=== PATIENT | female | born 1985 | race Caucasian/White ===

== ENCOUNTER 2025-01-22 09:38 | Outpatient (CLI) | payer OTHER, SELFPAY ==
--- OUTSIDE RECORDS SUMMARY | 2025-01-22 10:47 | XMS_ITS | Clinical Summary ---
Author Organization [facility] Address [address] [place] [address] Care Team Providers Care Rn Surgical Name Role Phone Roman Sebastian MD Primary Care Provider Source Comments [facility],non-owned Affiliates and Associated Physician Practices is amultiple site organization consisting of ambulatory clinics and hospital sitesin [place], [place], [place] and [place]. This disclosure is being madepursuant to the Care Everywhere program and may not contain all information available regarding this patient. Last updated 18.[facility] Encounters Date Type Department Care Team Description 11/28/2024 9:15 AM BILINGUAL INTERPRETER - 11/28/2024 11:59 PM BILINGUAL INTERPRETER Hospital Encounter [facility] [address] [place] [address] Roman Sebastian MD Discharge Disposition: Home or Self Care from Last 3 Months Family History Medical History Relation Name Comments Cancer - Breast Maternal Grandmother Relation Name Status Comments Maternal Grandmother Social History Tobacco Use Types Packs/Day Years Used Date Smoking Tobacco: Never Assessed Comments No Sex and Gender Information Value Date Recorded Sex Assigned at Not on file Legal Sex Female 10:05 AM BILINGUAL INTERPRETER Gender Identity Not on file Sexual Orientation Not on file Last Filed Vital Signs Vital Sign Reading Time Taken Comments Blood Pressure - - Pulse - - Temperature - - Respiratory Rate - - Oxygen Saturation - - Inhaled Oxygen Concentration - - Weight - - Height 154.9 cm (5' 1 ) 11/28/2024 9:35 AM BILINGUAL INTERPRETER Body Mass Index - - Plan of Treatment Health Maintenance Due Date Last Done Comments LIPID TESTING 1983 PAP SMEAR 1983 HIV SCREENING 12/12/1998 HEPATITIS C SCREENING 12/08/2001 DTAP/TDAP/TD VACCINES (1 - Tdap) 12/12/2002 HEPATITIS B VACCINE (1 of 3 - 19+ 3-dose series) 12/12/2002 COVID-19 VACCINE (2 - 2023-2 5 season) 2024 10/22/2021 DEPRESSION SCREENING 10/03/2024 INFLUENZA VACCINE (Season Ended) 2025 MAMMOGRAM 11/28/2026 11/28/2024 ZOSTER VACCINE (1 of 2) 12/12/2033 HIB VACCINE Aged Out No longer eligi ble based on patient's age to complete this topic HPV VACCINE Aged Out No longer eligi ble based on patient's age to complete this topic MENINGOCOCCAL (Group B) VACC INE SHARED DECISION-MAKING Aged Out No longer eligibl e based on patient's age to complete this topic MENINGOCOCCAL GROUPS A/C/Y/W VACCINE Aged Out No longer eligible b ased on patient's age to complete this topic PNEUMOCOCCAL VACCINE Aged Out No long er eligible based on patient's age to complete this topic Procedures Procedure Name Priority Date/Time Associated Diagnosis Comments MAMMO BILAT SCREENING W MILO Routine 11/28/2024 9:33 AM BILINGUAL INTERPRETER Visit for screening mammogram from Last 3 Months Results * Mammo Bilat Screening W Milo (11/28/2024 9:33 AM BILINGUAL INTERPRETER) Anatomical Region Laterality Modality Breast Bilateral Mammography 11/28/2024 10:0 8 AM BILINGUAL INTERPRETER Impressions 11/28/2024 10:54 AM BILINGUAL INTERPRETER IMPRESSION: No mammographic evidence of malignancy. RECOMMENDATION: Screening mammography in one year, pending no interval breast concerns. Patient will receive the examination results by lay letter. OVERALL ASSESSMENT: BI-RADS CATEGORY 1: NEGATIVE. Report dictated by Paul Umaña MD I, Jessica Babin MD, FACR have personally reviewed and interpreted this examination/study. > Interpreting Provider: Jessica Bbain MD, FACR on 11/28/2024 10:54 AM Narrative 11/28/2024 10:54 AM BILINGUAL INTERPRETER EXAMINATIONS: BILATERAL DIGITAL SCREENING MAMMOGRAM AND BILATERAL BREAST TOMOSYNTHESIS LOCATION: [facility] EXAM DATE: 11/28/2024 HISTORY: Screening. Family history of breast cancer in a maternal grandmother at age 55. RISK ASSESSMENT CALCULATION: Patient completed a breast cancer risk assessment during her appointment 11/28/2024. Based upon the information she provided and her mammographic breast density, her lifetime risk of developing breast cancer is 14 % (Average Risk <15%; Intermediate / Moderate Risk 15-19; High Risk > 20%). Risk assessment based upon the BRCAPRO model. COMPARISON: None. This is a baseline exam. TECHNIQUE: Tomosynthesis (3D) and reconstructed synthetic 2-D images acquired and reviewed in the bilateral craniocaudal and mediolateral oblique projections. A total of 5 images obtained. Transpara AI was utilized in the interpretation. BREAST PARENCHYMAL COMPOSITION: Category A: The breasts are almost entirely fatty. FINDINGS: There are no suspicious findings or evidence of malignancy on mammography. us Provider Unknown MAMMO ORDERABLES Final Result from Last 3 Months Insurance CARE Care Teams Rn Surgical Relationship Specialty [place] [address] [place] [address] PCP - General Internal Medicine 11/28/24
--- OUTSIDE RECORDS SUMMARY | 2025-01-22 10:47 | XMS_ITS | Clinical Summary ---
Author Organization [facility] Address [address] [place] [address] Care Team Providers Care Sr. Director Name Role Phone Unavailable Primary Care Provider Unavailabl e Immunizations Immunization Administration Dates Next Due Covid-19, Mrna, Lnp-s, Pf, 30 Mcg/0.3 Ml Dose (P fizer) 10/22/2021 Social History Tobacco Use Types Packs/Day Years Used Date Smoking Tobacco: Never Assessed Comments Unknown Sex and Gender Information Value Date Recorded Sex Assigned at Not on file Legal Sex Female 12:53 PM CDT Gender Identity Not on file Sexual Orientation Not on file Plan of Treatment Health Maintenance Due Date Last Done Comments Hepatitis C Virus (HCV) Screening 1983 TdaP Immunization 1983 Hepatitis B Immunization (1 of 3 - 19+ 3-dose series) 12/12/2002 Pap Smear 12/12/2004 Cervical Cancer Screening (CCS) 12/12/2013 HPV/Cotest 12/12/2013 Discussion re Starting/Frequency of Mammograms 2023 Influenza Immunization (#1) 2024 SARS-COV-2 Immunization ( season) 2024 10/22/2021, 02/15/2021, 01/25/2021 Respiratory Syncytial Virus (RSV) Immunization (Adult) (1 - 1-dose 75+ series) 12/12/2058 Meningococcal Immunization (ACWY) Aged Out No longer eligible b ased on patient's age to complete this topic Pneumococcal Immunization Combined Aged Out No longer eligible b ased on patient's age to complete this topic Rotavirus Immunization Aged Out No lo nger eligible based on patient's age to complete this topic
[2025-02-05 15:32] VITALS: BMI 41.0
--- NOTE | 2025-02-05 15:32 | P.SLEEP_ITS ---
Sleep Study - Home Unattended Date of Study: 01/22/25 Ordering Provider: Roman Sebastian, Interpreting Provider: Alexandra Phipps, DO Home Sleep Study Type: Watch PAT Height: 1.55 m Weight: 98.43 kg Body Mass Index: 41.0 Neck Circumference (inches): 15 [place]: 5 Reason for Sleep Study snoring, daytime hypersomnia Sleep History The patient is a 39-year-old female that had a sleep study ordered her primary care for evaluation sleep apnea. The patient admits to excessive daytime sleepiness, loud snoring, trouble falling asleep and trouble maintaining sleep. The patient does have interruptions in breathing during sleep. She does choke or gasp at night. She denies having trouble breathing on her back. She does have morning headaches. She does have a dry or sore mouth/ throat in the morning. She denies nocturnal heartburn. She does urinate twice throughout the night. She does have difficulty falling and staying asleep. She does have difficulty returning to sleep if she wakes up throughout the night. She denies any hypnotic or sedative use. She denies feeling anxious about sleep. She does feel tired or sleepy during the day. She does feel tired in the morning. She denies having the urge to fall asleep during the day. She denies feeling drowsy while driving. He denies sleep paralysis, cataplexy and hypnagogic/ hypnopompic hallucinations. She does clench or grind her teeth. She denies kicking or jerking her legs excessively. She denies having a restless feeling in her legs. She goes to bed at 10:00 p.m. on work days and at 11:00 p.m. on her days off. It takes her 1 hour to fall asleep. She gets 6 hours of sleep on work days and 7 hours on her days off. Her sleep is a little more restorative on her days off. She denies taking any planned naps. She denies dream behavior. She denies sleep walking. She consumes 1-2 cups of caffeinated beverage per day. She denies tobacco use. She consumes more than 3 alcoholic beverages 1-2 nights per week. She denies e xercising regular basis. [facility] Family History Family History Mother Patient's mother is in good health, Onset Age: 49 Carcinoma of colon, Onset Age: 28 Grandparent Family history of malignant neoplasm of cervix, Onset Age: 70 Family history of malignant neoplasm of breast, Onset Age: 68 Family history of lymphoma, Onset Age: 65 Social History Social History Smoking status: Never smoker Alcohol intake: current Sleep Procedure The sleep study was completed using larkT a technically adequate device with seven channels: peripheral arterial tone, actigraphy, body position, snore, respiratory movement, pulse oximetry, sleep staging, and heart rate. Prior to using the device, the patient received verbal and written instructions for its application and was provided with the help desk phone number for additional telephonic instruction with 24-hour availability of qualified personnel to answer questions. The study was scored using AASM guidelines. Sleep Architecture The total recording time is 7 hrs, 45 min. The total sleep time is 6 hrs, 57 min. Sleep latency is 26 minutes. REM latency is 56 minutes. The patient had 5 episodes of waking. Sleep architecture shows 23.6% deep sleep, 48.9% light sleep, and (as % Total Sleep Time) showed NREM (Light 48.9%; Deep 23.6%), and a 27.5% stage REM. The patient spent 4.7% of total sleep time in the supine position. Sleep efficiency was 89.68. Respiratory Analysis The overall AHI (pAHI 4%:) is 2.5. The overall AHI (pAHI 3%:) is 13.8. The central AHI is 1.2. The AHI was 7.8 in NREM and 28.9 in REM sleep. The AHI was 12.4 in Supine and 13.8 in Non-supine sleep. Percent of Rodríguez Doty respirations is 0.0. Oximetry Data The oxygen desaturation index (MARSHALL 4%:) is 3.3. The mean saturation is 95%, and the lowest saturation is 89%. Time spent with saturation < 88% is 0.0 minutes. Snoring Profile Snoring average intensity is 42 dB. The patient snored above 45 decibels for 83.6 minutes, 20.0% of sleep time. Cardiac Profile The average pulse rate is 70 beats per minutes. The lowest pulse rate is 57 bpm. The highest pulse rate reported is 106 bpm. Atrial fibrillation was not detected. Premature beats occur <0.1 per minute. Assessment and Plan Assessment and Plan (1) JANESSA (obstructive sleep apnea): Code(s): G47.33 - Obstructive sleep apnea (adult) (pediatric) Status: Acute Assessment and Plan: Per AASM guidelines, the patient had an overall AHI of 13.8 with desaturation down to 89% which is consistent with mild sleep apnea. Due to the patient's insomnia, she qualifies for treatment. I recommend that the patient be prescribed Resmed AirSense 11 AutoPAP 5-15 cm H2O, CPAP mask/filters/tubing and heated humidity. A mandibular advancement device is also an acceptable treatment option. This should be used with all episodes of sleep.? Compliance should be reviewed within 31-90 days of starting therapy for usage greater than 4 hours per night greater than 70% of the nights. The patient should be asked about symptoms such as?excessive daytime sleepiness, quality of sleep, decreased nocturia, increased?mental functioning such as memory, mood, and concentration. If the patient's insurance only recognizes CMS guidelines for sleep study scoring, the patient would not qualify for treatment based on these results. I would recommend that she have an in-lab split study if her insurance will not recognize AAS guidelines. Data The data obtained during this sleep study is adequate for interpretation. Certification This sleep study has been reviewed by a board certified sleep medicine physician.
== END 2025-01-23 09:15 | disposition home or self-care (01) ==
PROVIDERS: PCP Internal Medicine; Visit Provider Internal Medicine
DX: G47.33 Obstructive sleep apnea (adult) (pediatric) (principal)
CPT/HCPCS: 95800

== ENCOUNTER 2025-04-11 08:44 | Outpatient (CLI) | payer OTHER, SELFPAY ==
--- OUTSIDE RECORDS SUMMARY | 2025-04-11 08:56 | XMS_ITS | Clinical Summary ---
Author Organization [facility] Address [address] [place] [address] Care Team Providers Care Ssis Architect Name Role Phone Unavailable Primary Care Provider [...]
--- OUTSIDE RECORDS SUMMARY | 2025-04-11 08:56 | XMS_ITS | Clinical Summary ---
Author Organization [facility] Address [address] [place] [address] Care Team Providers Care Haunted History Tour Guide Name Role Phone Roman Sebastian MD Primary Care Provider Source Comments [facility],non-[facility] Affiliates and Associated Physician Practices is amultiple site organization consisting of ambulatory clinics and hospital sitesin [place], [place] and [place]. This disclosure is being madepursuant to the Care Everywhere program and may not contain all information available regarding this patient. Last updated 18.[facility] Family History Medical History Relation Name Comments Cancer - Breast Maternal Grandmother Relation Name Status Comments Maternal Grandmother Social History Tobacco Use Types Packs/Day Years Used Date Smoking Tobacco: Never Assessed Comments No Sex and Gender Information Value Date Recorded Sex Assigned at Not on file Legal Sex Female 10:05 AM AGENT TELEGRAPHER Gender Identity Not on file Sexual Orientation Not on file Last Filed Vital Signs Vital Sign Reading Time Taken Comments Blood Pressure - - Pulse - - Temperature - - Respiratory Rate - - Oxygen Saturation - - Inhaled Oxygen Concentration - - Weight - - Height 154.9 cm (5' 1) 11/28/2024 9:35 AM AGENT TELEGRAPHER Body Mass Index - - Plan of Treatment Health Maintenance Due Date Last Done Comments LIPID TESTING 1983 HIV SCREENING 12/12/1998 HEPATITIS C SCREENING 12/08/2001 DTAP/TDAP/TD VACCINES (1 - Tdap) 12/12/2002 HEPATITIS B VACCINE (1 of 3 - 19+ 3-dose series) 12/12/2002 PAP SMEAR 12/12/2004 COVID-19 VACCINE (2 - 2023-2 5 season) 2024 10/22/2021 DEPRESSION SCREENING 10/03/2024 INFLUENZA VACCINE (#1) 2025 MAMMOGRAM 11/28/2026 11/28/2024 ZOSTER VACCINE (1 [...] SCREENING W MILO Routine 11/28/2024 9:33 AM AGENT TELEGRAPHER Visit for screening mammogram from Last 3 Months or Most Recently Relevant to Health Maintenance Results * Mammo Bilat Screening W Milo (11/28/2024 9:33 AM AGENT TELEGRAPHER) Anatomical Region Laterality Modality Breast Bilateral Mammography 11/28/2024 10:0 8 AM AGENT TELEGRAPHER Impressions 11/28/2024 10:54 AM AGENT TELEGRAPHER IMPRESSION: No mammographic evidence of malignancy. RECOMMENDATION: Screening mammography in one year, pending no interval breast concerns. Patient will receive the examination results by lay letter. OVERALL ASSESSMENT: BI-RADS CATEGORY 1: NEGATIVE. Report dictated by Paul Umaña MD I, Jessica Babin MD, FACR have personally reviewed and interpreted this examination/study. > Interpreting Provider: Jessica Babin MD, FACR on 11/28/2024 10:54 AM Narrative 11/28/2024 10:54 AM AGENT TELEGRAPHER EXAMINATIONS: BILATERAL DIGITAL SCREENING MAMMOGRAM AND BILATERAL BREAST TOMOSYNTHESIS LOCATION: [facility] EXAM DATE: 11/28/2024 HISTORY: Screening. [...] ORDERABLES Final Result from Last 3 Months or Most Recently Relevant to [place] [id number] Care Teams Haunted History Tour Guide Relationship Specialty Start Date End Date Roman Sebastian MD [address] [place] [address] PCP - General Internal Medicine 11/28/24
--- OUTSIDE RECORDS SUMMARY | 2025-04-11 08:57 | XMS_ITS | Data Portability ---
Author Organization [facility] [employer], Main Office Address [address] [place] [address] Care Team Providers Care Administration Specialist Name Role Phone GLENYS HANEY Process Automation Engineer Assessment Encounter Date Assessment Date Assessment LastModified by Organization Details LastModified Time 03/21/2025 03/21/2025 Time spent with patient included: preparing to see patient by reviewing tests, obtaining and reviewing history, medical examination and evaluation, counseling and educating the patient, ordering medications and tests, documenting clinical information in EHR, interpreting results and communicating results to the patient for a total of 41 minutes.independ ently [email or web address] Not available 03/21/2025 14:58:28 Plan of Treatment Reminders Order Date Submit Date Provider Last Modified By Organization Details Last Modified Time Details Appointments Any 15 2024 08:45A M Roman Sebastian MD Not available Not available Not available Lab CMP, serum or plasma [address] (Lab), [address] [place], [address], 01/18/2025 12:45:46 lipid panel, serum 2024 025 TONI [facility] (Lab), [address] [place], [address], 01/14/2025 18:07:50 vitamin D, 25-hydrox y, total, serum [address] (Lab), [address] [place], [address], 01/18/2025 12:45:46 TSH, serum or plasma 2024 025 [email or web address] [facility] (Lab), [address] [place], [address], 01/18/2025 12:45:46 CBC w/ auto diff 2024 025 [facility] (Lab), [address] [place], [address], 01/11/2025 17:39:43 vitamin B12, serum 2024 025 [email or web address] [facility] (Lab), [address] [place], [address], 01/18/2025 12:45:47 TSH, serum or plasma 2022 023 [facility] (Lab), [address] [place], [address], 02/21/2023 19:58:22 CMP, serum or plasma 2022 023 [facility] (Lab), [address] [place], [address], 02/21/2023 19:34:47 lipid panel, serum 2022 023 [facility] (Lab), [address] [place], [address], 02/21/2023 19:34:51 Referral None recorded. Procedures colonosco py screening (PROC) - Please call patient to schedule an appointme nt. Thank you. 2024 025 DWIGHT neumann MD, [address], [address], [place], [address], 01/17/2025 13:40:24 Surgeries None recorded. Imaging polysomno gram, titration study - Please call patient to schedule. 2024 025 [facility] ([facility]), [address], [place], [address], 03/27/2025 12:40:13 home sleep study - Please call patient to schedule. 2024 025 [facility] ([facility]), [address], [place], [address], 02/05/2025 16:54:41 Medication Orders escitalop reta 10 mg tablet 2022 023 [email or web address] [id number], [address], [place], [place], [id number], 01/10/2025 09:39:19 Patient TargetsNo targets recorded. Patient InstructionsNo instructions recorded. Reason for Referral None Reported. Results Created Date Observation Date Name Description Value Unit Range Abnormal Flag Note LastModifiedBy Organization Detail LastModifiedTime 02/22/20 23 02/21/2023 COMPR EHENS ZEUS METAB OLIC PANEL sodium 140 mmol/ L 137-14 5 Not Available [facility] (Lab) [address] [place], [address], 02/21/2023 19:34:47 02/22/20 23 02/21/2023 COMPR EHENS ZEUS METAB OLIC PANEL potassium 4.2 mmol/ L 3.5-5. 1 Not Available [facility] (Lab) [address] [place], [address], 02/21/2023 19:34:47 02/22/20 23 02/21/2023 COMPR EHENS ZEUS METAB OLIC PANEL chloride 107 mmol/ L 98-107 Not Available [facility] (Lab) [address] [place], [address], 02/21/2023 19:34:47 02/22/20 23 02/21/2023 COMPR EHENS ZEUS METAB OLIC PANEL carbon dioxide 22 mmol/ L 22-30 Not Available [facility] (Lab) [address] [place], [address], 02/21/2023 19:34:47 02/22/20 23 02/21/2023 COMPR EHENS ZEUS METAB OLIC PANEL anion gap 15.2 mmol/ L 14- Not Available [facility] (Lab) [address] [place], [address], 02/21/2023 19:34:47 02/22/20 23 02/21/2023 COMPR EHENS ZEUS METAB OLIC PANEL glucose 92 mg/dL 70-99 Not Available [facility] (Lab) [address] [place], [address], 02/21/2023 19:34:47 02/22/20 23 02/21/2023 COMPR EHENS ZEUS METAB OLIC PANEL BUN 13 mg/dL 8-19 Not Available [facility] (Lab) [address] [place], [address], 02/21/2023 19:34:47 02/22/20 23 02/21/2023 COMPR EHENS ZEUS METAB OLIC PANEL creatinine 0.77 mg/dL 0.66-1 .25 Not Available [facility] (Lab) [address] [place], [address], 02/21/2023 19:34:47 02/22/20 23 02/21/2023 COMPR EHENS ZEUS METAB OLIC PANEL GFR >60 Refer ence Range : [place] GFR Healt hy Adult : >60 mL/mi n/1.7 3 m2 Chron ic Kidne y Disea se: 15-60 mL/mi n/1.7 3 m2 Kidne y Failu re: <15/m L/min /1.73 m2 www.n iddk. nih.g ov The MDRD study equat ion has not been valid ated in child jasen <18 years of age; pregn ant women ; the elder ly >85 years of age; or in some racia l or ethni c subgr oups, such as Hispa nics. Outsi de the valid ated ede eters , estim ated GFR is less accur ate, requi ring clini sal judgm ent on a case- by-ca se basis . Clini sal inter preta tion for other races and ages must be made by the clini viviana. The MDRD study equat ion has not been valid ated for the evalu ation of serum creat inine relat ed to nutri daisy l statu s or medic ation usage . For perso ns <18 years of age, a pedia tric GFR calcu lator is avail able on the [facility] websi te: https ://ww w.kid vernell.o rg/pr ofess ional s/kdo qi/gf r_cal culat or Not Available [facility] (Lab) [address] [place], [address], 02/21/2023 19:34:47 02/22/20 23 02/21/2023 COMPR EHENS ZEUS METAB OLIC PANEL alkaline phosphatase 59 U/L 38-126 Not Available [facility] (Lab) [address] [place], [address], 02/21/2023 19:34:47 02/22/20 23 02/21/2023 COMPR EHENS ZEUS METAB OLIC PANEL alanine aminotransfe rase 19 U/L 0-35 Not Available [facility] (Lab) [address] [place], [address], 02/21/2023 19:34:47 02/22/20 23 02/21/2023 COMPR EHENS ZEUS METAB OLIC PANEL aspartate aminotransfe rase 20 U/L 15-37 Not Available [facility] (Lab) [address] [place], [address], 02/21/2023 19:34:47 02/22/20 23 02/21/2023 COMPR EHENS ZEUS METAB OLIC PANEL bilirubin, total 0.20 mg/dL 0.20-1 .30 Not Available [facility] (Lab) [address] [place], [address], 02/21/2023 19:34:47 02/22/20 23 02/21/2023 COMPR EHENS ZEUS METAB OLIC PANEL calcium 8.8 mg/dL 8.4-10 .2 Not Available [facility] (Lab) [address] [place], [address], 02/21/2023 19:34:47 02/22/20 23 02/21/2023 COMPR EHENS ZEUS METAB OLIC PANEL total protein 6.7 g/dL 6.3-8. 2 Not Available [facility] (Lab) [address] [place], [address], 02/21/2023 19:34:47 02/22/20 23 02/21/2023 COMPR EHENS ZEUS METAB OLIC PANEL albumin 3.8 g/dL 3.4-5. 0 Not Available [facility] (Lab) [address] [place], [address], 02/21/2023 19:34:47 02/22/20 23 02/21/2023 COMPR EHENS ZEUS METAB OLIC PANEL globulin 2.9 g/dL 2.6-4. 2 Not Available [facility] (Lab) [address] [place], [address], 02/21/2023 19:34:47 02/22/20 23 02/21/2023 COMPR EHENS ZEUS METAB OLIC PANEL A/G ratio 1.3 ratio 1.0-2. 0 Not Available [facility] (Lab) [address] [place], [address], 02/21/2023 19:34:47 02/22/20 23 02/21/2023 LIPID PANEL cholesterol 155 mg/dL 140-19 9 NIH JOSSELIN NSUS RECOM MENDA TION FOR MARY STERO L: ADULT CHILD LOW RISK: <200 <170 BORDE RLINE : <200- 239 ----- HIGH RISK: >240 >200 Not Available [facility] (Lab) [address] [place], [address], 02/21/2023 19:34:51 02/22/20 23 02/21/2023 LIPID PANEL triglyceride s 78 mg/dL 0-150 NIH JOSSELIN NSUS REPOR T RECOM MENDA TION FOR TRIGL YCERI DAMARIS: ADULT CHILD LOW RISK: <150 ----- BODER LINE: 150-1 99 ----- HIGH RISK: >200 ----- Not Available [facility] (Lab) [address] [place], [address], 02/21/2023 19:34:51 02/22/20 23 02/21/2023 LIPID PANEL HDL cholesterol 59 mg/dL 40- Not Available [facility] (Lab) [address] [place], [address], 02/21/2023 19:34:51 02/22/20 23 02/21/2023 LIPID PANEL LDL cholesterol, calculated 80 mg/dL 0-130 NIH JOSSELIN NSUS REPOR T RECOM MENDA TIONS FOR LDL: ADULT CHILD LOW RISK <130 <110 (OPTI MAL LDL) <100 ----- BORDE RLINE : 130-1 59 ----- HIGH RISK: >160 >130 A TRIGL YCERI DE RESUL T >400 INVAL IDATE S THE CALCU LATIO N FOR LDL FRACT IONAT ION - THE LDL RESUL T WILL NOT BE REPOR TALISHA. Not Available [facility] (Lab) [address] [place], [address], 02/21/2023 19:34:51 02/22/20 23 02/21/2023 TSH thyroid-stim ulating hormone 1.290 uIU/m L 0.465- 4.680 Not Available [facility] (Lab) [address] [place], [address], 02/21/2023 19:58:22 02/06/20 25 01/22/2025 home sleep study No observ ation record ed. [email or web address] [facility] [address] [place], [address], 02/11/2025 09:53:21 Result Notes None recorded. Problems Name Problem SNOMED Code Status Onset Date Resolution Date Notes Provider Name and Address Organization Details Recorded Time Depressive disorder 46945149 Active 2021 Not Available [facility] 3 14:47:44 Pain of shoulder region 05593467 Active Not Available [facility] 3 14:47:44 Upper respiratory infection 90689383 Active 2021 Not Available [facility] 3 14:47:44 Neck pain 70278388 Active Not Available [facility] 3 14:47:44 Obesity 013386264 Active 2022 Roman Sebastian MD [address], [address], [place], [address] , [employer] [facility] [employer] 3 16:27:30 Sleep pattern disturbance 70677347 Active 2024 Roman Sebastian MD [address], [address], [place], [address] , [employer] [facility] [employer] 5 10:06:07 Fatigue 36964434 Active 2024 Roman Sebastian MD [address], [address], [place], [address] , [employer] [facility] [employer] 5 10:09:01 Vitamin D deficiency 52223775 Active 2024 HENRY Zimmer, [employer] [facility] [employer] 5 10:00:55 Obstructive sleep apnea syndrome 90472535 Active 2024 HENRY Zimmer, [employer] [facility] [employer] 5 14:10:20 Sleep apnea 92891415 Active 2024 Marysol Chapman NP [address], [address], [place], [address] , [facility] [employer] 5 14:46:27 Problem Notes None recorded. Procedures Surgical History Date Name Laterality Status Provider Name and Address Organization Details Recorded Time Tubal Ligation completed Not Available [facility] 12/01/2022 14:44:58 cholecystectomy completed Not Available [facility] 12/01/2022 14:44:58 Dilation and curettage completed Not Available [facility] 12/01/2022 14:44:58 Imaging Results None recorded. Procedure Notes None recorded. Medical Equipment None Reported. Allergies No known drug allergies Medications Name Sig Start Date Stop Date Status Note LastModified by Organization Details LastModified Time cyclobenzapr ine 10 mg tablet 09/02 completed Not Available Not Available Not Available hydrocodone 7.5 mg-ibuprofen 200 mg tablet 09/02 completed Not Available Not Available Not Available hydrocodone 10 mg-acetamino phen 325 mg tablet active Not Available Not Available Not Available amitriptylin e 25 mg tablet active Not Available Not Available Not Available gabapentin 300 mg capsule active Not Available Not Available Not Available ergocalcifer ol (vitamin D2) 1,250 mcg (50,000 unit) capsule TAKE 1 CAPSULE BY MOUTH EVERY WEEK active Not Available Not Available No t Available hydrocodone 10 mg-acetamino phen 650 mg tablet active Not Available Not Available Not Available escitalopram 10 mg tablet Take 1 tablet every day by oral route at bedtime. 01/10 completed Not Available Not Available Not Available Amitiza 24 mcg capsule active Not Available Not Available Not Available G[employer]te-N 420 gram oral solution active Not Available Not Available Not Available Vitals Date Recorded Body mass index (BMI) Body height Oxygen saturation Oxygen saturation in Arterial blood by Pulse oximetry Heart rate Body temperature Body weight Systolic And Diastolic Provider Name and Address Organization Details Last Updated DateTime 3 38 kg/m2 154.94 cm 98 % 98 % 86 /min 98.1 [degF] 31162.0 7 g 120/80 mm[Hg] Not Available [facility] 3 14:45:15 Date Recorded Body height Body mass index (BMI) Body weight Body temperature Heart rate Oxygen saturation Oxygen saturation in Arterial blood by Pulse oximetry Systolic And Diastolic Provider Name and Address Organization Details Last Updated DateTime 5 154.94 cm 41 kg/m2 32136.5 4 g 97 [degF] 89 /min 98 % 98 % 118/84 mm[Hg] Jessica díazLIGIA [facility] Number [address] [facility] 5 09:37:46 Date Recorded Body height Body mass index (BMI) Body weight Body temperature Heart rate Oxygen saturation Oxygen saturation in Arterial blood by Pulse oximetry Systolic And Diastolic Provider Name and Address Organization Details Last Updated DateTime 3 154.94 cm 38.7 kg/m2 30357.4 4 g 98.2 [degF] 83 /min 98 % 98 % 120/80 mm[Hg] Laura Mehta CMA [facility] Number [address] [facility] 3 15:51:30 Date Recorded Body height Body mass index (BMI) Body weight Body temperature Heart rate Oxygen saturation Oxygen saturation in Arterial blood by Pulse oximetry Systolic And Diastolic Provider Name and Address Organization Details Last Updated DateTime 5 154.94 cm 41.2 kg/m2 42650.1 4 g 97.9 [degF] 79 /min 98 % 98 % 116/82 mm[Hg] Anahi Parmar MA [facility] Number [address] [facility] 5 14:32:47 Date Recorded Body mass index (BMI) Body height Oxygen saturation Oxygen saturation in Arterial blood by Pulse oximetry Heart rate Body weight Systolic And Diastolic Provider Name and Address Organization Details Last Updated DateTime 2 38.2 kg/m2 154.94 cm 99 % 99 % 71 /min 38273.6 6 g 120/90 mm[Hg] Not Available [facility] 3 14:45:15 Social History Question Answer Notes LastModified by Organization Details LastModified Time Tobacco Smoking Status Former Smoker smoked a bit in her teenage yrs Not Available [facility] 12/01/2022 14:44:31 Do You Have An Advance Directive? No MIGRATION.300 [id number] Information not available 12/01/2022 What Is Your Level Of Caffeine Consumption? Moderate MIGRATION.030 [id number] Information not available 12/01/2022 In The 14 Days Before Symptom Onset, Have You Had Close Contact With A Laboratory-confi rmed COVID-19 While That Case Was Ill? No Information not available 03/21/2025 In The 14 Days Before Symptom Onset, Have You Had Close Contact With A Person Who Is Under Investigation For COVID-19 While That Person Was Ill? No Information not available 03/21/2025 What Type Of Diet Are You Following? REGULAR MIGRATION.0301 [id number] Information not available 12/01/2022 What Is The Highest Grade Or Level Of School You Have Completed Or The Highest Degree You Have Received? [id number] MIGRATION.0301 [id number] Information not available 12/01/2022 Do You Have An Electrostatic Air Filter? No Information not available 03/21/2025 Have There Been Any Changes To Your Family Or Social Situation? No MIGRATION.0301 [id number] Information not available 12/01/2022 Do You Have A Humidifier? No Information not available 03/21/2025 Do You Use Insect Repellent Routinely? No MIGRATION.0301 [id number] Information not available 12/01/2022 Where Do You Live? SingleLevelHouse MIGRATION.0301 052106 Information not available 12/01/2022 Do You Have Moisture Problems In Your Home? No Information not available 03/21/2025 What Was The Date Of Your Most Recent Tobacco Screening? 03/21/2025 Information not available 03/21/2025 Do You Have Any Pets? Yes MIGRATION.0301 [id number] Information not available 12/01/2022 What Is Your Relationship Status? MIGRATION.0301 437771 Information not available 12/01/2022 Do You Use Your Seat Belt Or Car Seat Routinely? Yes Information not available 03/21/2025 Do You Have Smoke And Carbon Monoxide Detectors In Your Home? Yes MIGRATION.0301 [id number] Information not available 12/01/2022 Are You Passively Exposed To Smoke? No MIGRATION.0301 040663 Information not available 12/01/2022 Are There Any Smokers In Your House? No MIGRATION.0301 045623 Information not available 12/01/2022 Do You Use Sunscreen Routinely? No MIGRATION.0301 [id number] Information not available 12/01/2022 Have You Recently Traveled Abroad? No MIGRATION.0301 [id number] Information not available 12/01/2022 Do You Have Any Dietary Restrictions? No MIGRATION.0301 792920 Information not available 12/01/2022 Sex: Female Functional Status Question Answer Note LastModified by Organizat ion Details LastModified Time Do you use any illicit or recreational drugs? No MIGRATION.31760 [id number] Information not available 12/01/2022 Do you or have you ever used any other forms of tobacco or nicotine? No Information not available 03/21/2025 What is your level of alcohol consumption? Occasional MIGRATION.39900 03121 Information not available 12/01/2022 Have you been exposed to chemicals or toxins? 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 None MIGRATION.03642 38009 Information not available 12/01/2022 Mental Status Question Answer Note LastModified by Organizat ion Details LastModified Time Do you feel stressed (tense, restless, nervous, or anxious, or unable to sleep at night)? [id number] [id number].[id number] 6 Information not available 12/01/2022 Family History Relationship Description Onset Age of this Age Resolved Age Notes LastModified by Organization Details LastModified Time Mother Essential hypertension MIGRATION.825 [id number] Not available 12/01/2022 14:44:59 Mother Family history of malignant neoplasm Colon MIGRATION.237 [id number] Not available 12/01/2022 14:44:59 Mother Depressive disorder MIGRATION.420 [id number] Not available 12/01/2022 14:44:59 Maternal Grandfather Diabetes mellitus MIGRATION.474 [id number] Not available 12/01/2022 14:44:59 Maternal Grandmother Family history of malignant neoplasm 8 differ ent kinds MIGRATION.420 [id number] Not available 12/01/2022 14:44:59 Medical History No medical history recorded. Gynecological HistoryNo gynecological history recorded. Obstetrics History GPAL:G 0 P 0 0 0 0 Past Encounters Encounter ID Performer Location Encounter Start Date Encounter Closed Date Diagnosis/Indication Diagnosis SNOMED-CT Code Diagnosis ICD10 Code Diagnosis Note [id number] MD AUDREY Weiss_[facility] Internal Med [facility] [address] [place] [address] 09/02/2022 00:00:00 09/02/2022 15:56:13 [id number] MD AUDREY [facility] [address] [address] 10/13/2022 00:00:00 10/13/2022 15:58:51 [id number] Roman Sebastian MD [facility] Internal Med [address] [facility] [place] [address] 02/16/2023 15:43:45 02/16/2023 16:30:26 Depressive disorder 64717402 F32.A under control Adult heal th examination 156137198 Z00.00 FLU- Has not had in yrsCOVID- Has had 2 vaccines and 1 booster Obesity 900361015 E66.9 watch diet [id number] Roman Sebastian MD [facility] Internal Med [address] [facility] [place] [address] 01/10/2025 09:31:03 01/10/2025 10:36:24 Adult health examination 502267233 Z00.00 Colonoscop y- >7yrs [facility] (U)- Not in chartFLU- 4COV ID- Has had 2 vaccines and 1 booster Obesity 654133545 E66.9 watch diet and exercises Sleep cedric mack disturbance 53744728 G47.9 high sleep apnea score, report in the chart Fatigue 01009400 R53.83 Screening for malignant neoplasm of colon 309725627 Z12.11 high risk due to FH [id number] Marysol Chapman NP S[facility]G Pulmonolo [facility] [place] [id number] [facility] [address] [place] [address] 03/21/2025 13:57:51 03/22/2025 16:07:57 Sleep apnea 80680734 G47.30 G47.33 Home sleep study through [facility] HI 13.8 with desat to 89%titrati on sleep study order todayESS-5 Discussed sleep hygeineAdv ised good sleep habits and patterns:- Set a goal for at least 7 to 8 hours of sleep time per day-Use the bed mainly for sleep and to go to bed only when tired. If unable to fall asleep after 30 minutes, patient should get out of bed but should not engage in any activity that requires sustained mental alertness. -Maintain a bedtime and wake-up time even on weekends or day off of work.-Avoi d excessive naps during the daytime. If a nap is necessary, limit to no more than 30 minutes.-M inimize enviroment al noise, bright lights, and extremitie s in bedroom temperatur es.-Avoid alcohol, caffeinate d beverages, and nicotine products for at least 6 hours prior to bedtime.-A void strenuous exercise and large meals for at least 4 hours prior to bedtime.-D iscussed reportable signs and symptoms of concernf/u after titration study Body mass index 40+ - severely obese 756469457 Z68.41 Encourage healthy diet and exercise to improve weightdisc ussed weight effect on sleep and sleep apnea Health Concerns Section Related Observation LastModified by Organization Detai ls LastModified Time None Recorded Concern Status LastModified by Organization Details LastModified Time None Recorded Advance Directives Directive N: Payers Insurance Date Sequence Insurance Name Policy Number Policy Serrano Covered Member ID Serrano Member ID Guarantor Name 03/21/2025 1 [facility] [id number] Peri Escobar [id number] Peri Escobar 03/21/2025 1 [facility] Armand Escobar [id number] Peri Escobar 12/01/2022 [employer] [id number] Armand Escobar Notes Date Note Type Note Provider Name and Address Organization Details Recorded Time 02/16/2023 text/html Pt is here today for a routine follow up, doing fine, complaint to medsDepression- mood is under control, sleeps fine when gets time, weight is upmed- Escitalopram 10 mg Roman Sebastian MD [address] [facility] [place], [place], [address], [place] [facility] [employer] 02/16/2023 17:13:54 01/10/2025 text/html Pt is here today for a routine follow up, doing finePT IS FASTING ( [facility] ) Requesting an order for a Colonoscopy, Mom was diagnosed with colon cancer at the age of 28. h/o Depression- mood is under control, sleeps fine when gets time, weight is up. No longer taking meds. Insomnia- Has a hard time falling asleep Obesity- snores, feels tired Roman Sebastian MD [address], [place], [address], [facility] Number [address] [facility] 01/10/2025 10:25:32 03/21/2025 text/html Obstructive Slee p ApneaReported bypatient.Timing:gr adual; daily Duration:frequent Associated Symptoms:no dysphagia; no awakening short of breath; no night sweats; no napping; no nasal congestion; no snoring; no gasping for air; no hyponasal speech; no mouth breathing; no hyperactivity; no irritability;mornin g dry mouth;morning headache;postnasal drip;daytime sleepiness;suddenly falling asleep during the day;impaired work performance;witness ed apnea;poor concentration;amnes ia; loud snoringNotes:primar y did a sleep study Marysol Chapman NP [address] [address] [address], [place], [address], [facility] 03/21/2025 15:00:03 OBGyn Episode No OBEpisode recorded.
== END 2025-04-12 07:19 | disposition home or self-care (01) ==
LOC: ANHCSM 08:52
PROVIDERS: PCP Internal Medicine; Visit Provider Nurse Practitioner
DX: G47.30 Sleep apnea, unspecified (principal)
CPT/HCPCS: 95811; 99199

== ENCOUNTER 2025-04-17 08:26 | Outpatient (CLI) | payer OTHER, SELFPAY ==
--- OUTSIDE RECORDS SUMMARY | 2025-04-17 08:32 | XMS_ITS | Clinical Summary ---
Author Organization [facility] Address [address] [place] [address] Care Team Providers Care Mrp Controller Name Role Phone Unavailable Primary Care Provider [...]
--- OUTSIDE RECORDS SUMMARY | 2025-04-17 08:32 | XMS_ITS | Clinical Summary ---
Author Organization [facility] Address [address] [place] [address] Care Team Providers Care Sas Clinical Programmer Name Role Phone Roman Sebastian MD Primary Care Provider Source Comments [facility] and Associated Physician Practices is amultiple site organization consisting of ambulatory clinics and hospital sitesin [place], [place], [place] and [place]. This disclosure is being madepursuant to the Care Everywhere program and may not contain all information available regarding this patient. Last updated 18.[facility] Family History Medical History Relation Name Comments Cancer - Breast Maternal Grandmother Relation Name Status Comments Maternal Grandmother Social History Tobacco Use Types Packs/Day Years Used Date Smoking Tobacco: Never Assessed Comments No Sex and Gender Information Value Date Recorded Sex Assigned at Not on file Legal Sex Female 10:05 AM FUEL CELL BATTERY TECHNICIAN Gender Identity Not on file Sexual Orientation Not on file Last Filed Vital Signs Vital Sign Reading Time Taken Comments Blood Pressure - - Pulse - - Temperature - - Respiratory Rate - - Oxygen Saturation - - Inhaled Oxygen Concentration - - Weight - - Height 154.9 cm (5' 1) 11/28/2024 9:35 AM FUEL CELL BATTERY TECHNICIAN Body Mass Index - - Plan of Treatment Health Maintenance Due Date Last Done Comments LIPID TESTING 1983 HIV SCREENING 12/12/1998 HEPATITIS C SCREENING 12/08/2001 DTAP/TDAP/TD VACCINES (1 - Tdap) 12/12/2002 HEPATITIS B VACCINE (1 of 3 - 19+ 3-dose series) 12/12/2002 PAP SMEAR 12/12/2004 HPV VACCINE (1 - 3-dose SCDM series) 12/12/2010 COVID-19 VACCINE (2 - 2023-2 5 season) [...] SCREENING W MILO Routine 11/28/2024 9:33 AM FUEL CELL BATTERY TECHNICIAN Visit for screening mammogram from Last 3 Months or Most Recently Relevant to Health Maintenance Results * Mammo Bilat Screening W Milo (11/28/2024 9:33 AM FUEL CELL BATTERY TECHNICIAN) Anatomical Region Laterality Modality Breast Bilateral Mammography 11/28/2024 10:0 8 AM FUEL CELL BATTERY TECHNICIAN Impressions 11/28/2024 10:54 AM FUEL CELL BATTERY TECHNICIAN IMPRESSION: No mammographic evidence of malignancy. RECOMMENDATION: [...] 11/28/2024 10:54 AM Narrative 11/28/2024 10:54 AM FUEL CELL BATTERY TECHNICIAN EXAMINATIONS: BILATERAL DIGITAL SCREENING MAMMOGRAM AND BILATERAL BREAST TOMOSYNTHESIS LOCATION: [facility] EXAM DATE: 11/28/2024 HISTORY: Screening. Family history [...] Most Recently Relevant to Health Maintenance Insurance Care Teams Sas Clinical Programmer Relationship Specialty Start Date End Date Roman Sebastian MD [address] [place] [address] PCP - General Internal Medicine 11/28/24
--- OUTSIDE RECORDS SUMMARY | 2025-04-17 08:32 | XMS_ITS | Data Portability ---
Author Organization [facility], Main Office Address [address] [place] [address] Care Team Providers Care Duct Maker Name Role Phone GLENYS HANEY Psychology Physician Assessment Encounter Date Assessment Date Assessment LastModified [...] Lab CMP, serum or plasma [address] (Lab), [address] [place], [address], 01/18/2025 12:45:46 lipid panel, serum 2024 025 TONI [facility] (Lab), [address] [place], [address], 01/14/2025 18:07:50 vitamin D, 25-hydrox y, total, serum [address] (Lab), [address] [place], [address], 01/18/2025 12:45:46 TSH, serum or plasma 2024 025 [email or web address] [facility] (Lab), [address] [place], [address], 01/18/2025 12:45:46 CBC w/ auto diff 2024 025 [facility] (Lab), [address] [place], [address], 01/11/2025 17:39:43 vitamin B12, serum 2024 025 [email or web address] [facility] (Lab), [address] [place], [address], 01/18/2025 12:45:47 TSH, serum or plasma 2022 023 [facility] (Lab), [address] [place], [address], 02/21/2023 19:58:22 CMP, serum or plasma 2022 023 [facility] (Lab), [address] [place], [address], 02/21/2023 19:34:47 lipid panel, serum 2022 023 [facility] (Lab), [address] [place], [address], 02/21/2023 19:34:51 Referral None recorded. Procedures colonosco py screening (PROC) - Please call patient to schedule an appointme nt. Thank you. 2024 025 [email or web address] Juan Jose neumann MD, [address], [address], [place], [address], 04/17/2025 09:08:01 Surgeries None recorded. Imaging polysomno gram, titration study - Please call patient to schedule. 2024 025 [facility] ([facility]), [address], [place], [address], 03/27/2025 12:40:13 home sleep study - Please call patient to schedule. 2024 025 [facility] ([facility]), [address], [place], [address], 02/05/2025 16:54:41 Medication Orders escitalop reta 10 mg tablet 2022 023 [email or web address] [id number], [address], [place], [place], [id number], 01/10/2025 09:39:19 Patient TargetsNo targets recorded. Patient InstructionsNo instructions recorded. Reason for Referral None Reported. Results Created Date Observation Date Name Description Value Unit Range Abnormal Flag Note LastModifiedBy Organization Detail LastModifiedTime 02/22/20 23 02/21/2023 COMPR EHENS ZEUS METAB OLIC PANEL sodium 140 mmol/ L 137-14 5 Not Available [facility] (Lab) [address] [place], [address], 02/21/2023 19:34:47 02/22/20 23 02/21/2023 COMPR EHENS ZEUS METAB OLIC PANEL potassium 4.2 mmol/ L 3.5-5. 1 Not Available [facility] (Lab) [address] [place], [address], 02/21/2023 19:34:47 02/22/20 23 02/21/2023 COMPR EHENS ZEUS METAB OLIC PANEL chloride 107 mmol/ L 98-107 Not Available [facility] (Lab) [address] [place], [address], 02/21/2023 19:34:47 02/22/20 23 02/21/2023 COMPR EHENS ZEUS METAB OLIC PANEL carbon dioxide 22 mmol/ L 22-30 Not Available [facility] (Lab) [address] [place], [address], 02/21/2023 19:34:47 02/22/20 23 02/21/2023 COMPR EHENS ZEUS METAB OLIC PANEL anion gap 15.2 mmol/ L 14- Not Available [facility] (Lab) [address] [place], [address], 02/21/2023 19:34:47 02/22/20 23 02/21/2023 COMPR EHENS ZEUS METAB OLIC PANEL glucose 92 mg/dL 70-99 Not Available [facility] (Lab) [address] [place], [address], 02/21/2023 19:34:47 02/22/20 23 02/21/2023 COMPR EHENS ZEUS METAB OLIC PANEL BUN 13 mg/dL 8-19 Not Available [facility] (Lab) [address] [place], [address], 02/21/2023 19:34:47 02/22/20 23 02/21/2023 COMPR EHENS ZEUS METAB OLIC PANEL creatinine 0.77 mg/dL 0.66-1 .25 Not Available [facility] (Lab) [address] [place], [address], 02/21/2023 19:34:47 02/22/20 23 02/21/2023 COMPR EHENS ZEUS METAB OLIC PANEL GFR >60 Refer ence Range : [place] ge GFR Healt hy Adult : >60 [...] calcu lator is avail able on the [facility] websi te: https ://ww w.kid vernell.o rg/pr ofess ional s/kdo qi/gf r_cal culat or Not Available [facility] (Lab) [address] [place], [address], 02/21/2023 19:34:47 02/22/20 23 02/21/2023 COMPR EHENS ZEUS METAB OLIC PANEL alkaline phosphatase 59 U/L 38-126 Not Available [facility] (Lab) [address] [place], [address], 02/21/2023 19:34:47 02/22/20 23 02/21/2023 COMPR EHENS ZEUS METAB OLIC PANEL alanine aminotransfe rase 19 U/L 0-35 Not Available [facility] (Lab) [address] [place], [address], 02/21/2023 19:34:47 02/22/20 23 02/21/2023 COMPR EHENS ZEUS METAB OLIC PANEL aspartate aminotransfe rase 20 U/L 15-37 Not Available [facility] (Lab) [address] [place], [address], 02/21/2023 19:34:47 02/22/20 23 02/21/2023 COMPR EHENS ZEUS METAB OLIC PANEL bilirubin, total 0.20 mg/dL 0.20-1 .30 Not Available [facility] (Lab) [address] [place], [address], 02/21/2023 19:34:47 02/22/20 23 02/21/2023 COMPR EHENS ZEUS METAB OLIC PANEL calcium 8.8 mg/dL 8.4-10 .2 Not Available [facility] (Lab) [address] [place], [address], 02/21/2023 19:34:47 02/22/20 23 02/21/2023 COMPR EHENS ZEUS METAB OLIC PANEL total protein 6.7 g/dL 6.3-8. 2 Not Available [facility] (Lab) [address] [facility] [place], [address], 02/21/2023 19:34:47 02/22/20 23 02/21/2023 COMPR EHENS ZEUS METAB OLIC PANEL albumin 3.8 g/dL 3.4-5. 0 Not Available [facility] (Lab) [address] [place], [address], 02/21/2023 19:34:47 02/22/20 23 02/21/2023 COMPR EHENS ZEUS METAB OLIC PANEL globulin 2.9 g/dL 2.6-4. 2 Not Available [facility] (Lab) [address] [place], [address], 02/21/2023 19:34:47 02/22/20 23 02/21/2023 COMPR EHENS ZEUS METAB OLIC PANEL A/G ratio 1.3 ratio 1.0-2. 0 Not Available [facility] (Lab) [address] [place], [address], 02/21/2023 19:34:47 02/22/20 23 02/21/2023 LIPID PANEL cholesterol 155 mg/dL 140-19 9 NIH JOSSELIN NSUS RECOM MENDA TION FOR MARY STERO L: ADULT CHILD LOW RISK: <200 <170 BORDE RLINE : <200- 239 ----- HIGH RISK: >240 >200 Not Available [facility] (Lab) [address] [place], [address], 02/21/2023 19:34:51 02/22/2002/21/2023 LIPID PANEL triglyceride s 78 mg/dL 0-150 NIH JOSSELIN NSUS REPOR T RECOM MENDA TION FOR TRIGL YCERI DAMARIS: ADULT CHILD LOW RISK: <150 ----- BODER LINE: 150-1 99 ----- HIGH RISK: >200 ----- Not Available [facility] (Lab) [address] [place], [address], 02/21/2023 19:34:51 02/22/20 23 02/21/2023 LIPID PANEL HDL cholesterol 59 mg/dL 40- Not Available [facility] (Lab) [address] [place], [address], 02/21/2023 19:34:51 02/22/20 23 02/21/2023 LIPID PANEL [...] WILL NOT BE REPOR TALISHA. Not Available [facility] (Lab) [address] [place], [address], 02/21/2023 19:34:51 02/22/20 23 02/21/2023 TSH thyroid-stim ulating hormone 1.290 uIU/m L 0.465- 4.680 Not Available [facility] (Lab) [address] [place], [address], 02/21/2023 19:58:22 02/06/20 25 01/22/2025 home sleep study No observ ation record ed. [email or web address] [place] [address] [facility] [address] [place], [address], 02/11/2025 09:53:21 Result Notes None recorded. Problems Name Problem SNOMED Code Status Onset Date Resolution Date Notes Provider Name and Address Organization Details Recorded Time Depressive disorder 93062810 Active 2021 Not Available [facility] 3 14:47:44 Pain of shoulder region 48717067 Active Not Available [facility] 3 14:47:44 Upper respiratory infection 03963688 Active 2021 Not Available [facility] 3 14:47:44 Neck pain 60504069 Active Not Available [facility] 3 14:47:44 Obesity 887370913 Active 2022 Roman Sebastian MD [address], [address], [place], [address] , [employer] [facility] [employer] 3 16:27:30 Sleep pattern disturbance 22024918 Active 2024 Roman Sebastian MD [address], [address], [place], [address] , [employer] 5 10:06:07 Fatigue 76673600 Active 2024 Roman Sebastian MD [address], [address], [place], [address] , [employer] 5 10:09:01 Vitamin D deficiency 39434539 Active 2024 EHNRY Zimmer, [employer] [facility] [employer] 5 10:00:55 Obstructive sleep apnea syndrome 64049583 Active 2024 HENRY Zimmer, [employer] 14:10:20 Sleep apnea 08859368 Active 2024 Marysol Chapman NP [address], [address], [place], [address] , [employer] 5 14:46:27 Problem Notes None recorded. Procedures Surgical History Date Name Laterality Status Provider Name and Address Organization Details Recorded Time Tubal Ligation completed Not Available [facility] 12/01/2022 14:44:58 cholecystectomy completed Not Available [facility] 12/01/2022 14:44:58 Dilation and curettage completed Not Available [facility] 12/01/2022 14:44:58 Imaging Results None recorded. Procedure [...] % 98 % 86 /min 98.1 [degF] 94125.0 7 g 120/80 mm[Hg] Not Available [facility] 3 14:45:15 Date Recorded Body height Body mass index (BMI) Body weight Body temperature Heart rate Oxygen saturation Oxygen saturation in Arterial blood by Pulse oximetry Systolic And Diastolic Provider Name and Address Organization Details Last Updated DateTime 5 154.94 cm 41 kg/m2 47982.5 4 g 97 [degF] 89 /min 98 % 98 % 118/84 mm[Hg] Jessica [facility] [employer] [facility] 5 09:37:46 Date Recorded Body height Body mass index (BMI) Body weight Body temperature Heart rate Oxygen saturation Oxygen saturation in Arterial blood by Pulse oximetry Systolic And Diastolic Provider Name and Address Organization Details Last Updated DateTime 3 154.94 cm 38.7 kg/m2 09073.4 4 g 98.2 [degF] 83 /min 98 % 98 % 120/80 mm[Hg] Laura Mehta CMA [facility] [employer] [facility] 3 15:51:30 Date Recorded Body height Body mass index (BMI) Body weight Body temperature Heart rate Oxygen saturation Oxygen saturation in Arterial blood by Pulse oximetry Systolic And Diastolic Provider Name and Address Organization Details Last Updated DateTime 5 154.94 cm 41.2 kg/m2 75659.1 4 g 97.9 [degF] 79 /min 98 % 98 % 116/82 mm[Hg] Anahi Parmar MA [facility] [employer] [facility] 5 14:32:47 Date Recorded Body mass index (BMI) Body height Oxygen saturation Oxygen saturation in Arterial blood by Pulse oximetry Heart rate Body weight Systolic And Diastolic Provider Name and Address Organization Details Last Updated DateTime 2 38.2 kg/m2 154.94 cm 99 % 99 % 71 /min 68973.6 6 g 120/90 mm[Hg] Not Available [facility] 3 14:45:15 Social History Question Answer Notes LastModified by Organization Details LastModified Time Tobacco Smoking Status Former Smoker smoked a bit in her teenage yrs Not Available [facility] 12/01/2022 14:44:31 Do You Have An Advance Directive? No MIGRATION.300 [id number] Information not available 12/01/2022 What Is Your Level Of Caffeine Consumption? Moderate MIGRATION.030 [id number] Information not available 12/01/2022 In The 14 [...] Of Diet Are You Following? REGULAR MIGRATION.0301 [id number] Information not available 12/01/2022 What Is The Highest Grade Or Level Of School You Have Completed Or The Highest Degree You Have Received? [id number] MIGRATION.0301 [id number] Information not available 12/01/2022 Do You Have An Electrostatic Air Filter? No Information not available 03/21/2025 Have There Been Any Changes To Your Family Or Social Situation? No MIGRATION.0301 [id number] Information not available 12/01/2022 Do You Have A Humidifier? No Information not available 03/21/2025 Do You Use Insect Repellent Routinely? No MIGRATION.0301 [id number] Information not available 12/01/2022 Where Do You Live? SingleLevelHouse MIGRATION.0301 316684 Information not available 12/01/2022 Do You Have Moisture Problems In Your Home? No Information not available 03/21/2025 What Was The Date Of Your Most Recent Tobacco Screening? 03/21/2025 Information not available 03/21/2025 Do You Have Any Pets? Yes MIGRATION.0301 [id number] Information not available 12/01/2022 What Is Your Relationship Status? MIGRATION.0301 [id number] Information not available 12/01/2022 Do You Use Your Seat Belt Or Car Seat Routinely? Yes Information not available 03/21/2025 Do You Have Smoke And Carbon Monoxide Detectors In Your Home? Yes MIGRATION.0301 525235 Information not available 12/01/2022 Are You Passively Exposed To Smoke? No MIGRATION.0301 278337 Information not available 12/01/2022 Are There Any Smokers In Your House? No MIGRATION.0301 293425 Information not available 12/01/2022 Do You Use Sunscreen Routinely? No MIGRATION.0301 606569 Information not available 12/01/2022 Have You Recently Traveled Abroad? No MIGRATION.0301 217617 Information not available 12/01/2022 Do You Have Any Dietary Restrictions? No MIGRATION.0301 836571 Information not available 12/01/2022 Sex: Female Functional Status Question Answer Note LastModified by Organizat ion Details LastModified Time Do you use any illicit or recreational drugs? No MIGRATION.50603 77086 Information not available 12/01/2022 Do you or have you ever used any other forms of tobacco or nicotine? No Information not available 03/21/2025 What is your level of alcohol consumption? Occasional MIGRATION.15912 45997 Information not available 12/01/2022 Have you been exposed to chemicals or toxins? 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 None MIGRATION.19344 86480 Information not available 12/01/2022 Mental Status Question Answer Note LastModified by Organizat ion Details LastModified Time Do you feel stressed (tense, restless, nervous, or anxious, or unable to sleep at night)? [id number] [id number].[id number] 6 Information not available 12/01/2022 Family History Relationship Description Onset Age of this Age Resolved Age Notes LastModified by Organization Details LastModified Time Mother Essential hypertension MIGRATION.712 [id number] Not available 12/01/2022 14:44:59 Mother Family history of malignant neoplasm Colon MIGRATION.831 [id number] Not available 12/01/2022 14:44:59 Mother Depressive disorder MIGRATION.818 7155041 Not available 12/01/2022 14:44:59 Maternal Grandfather Diabetes mellitus MIGRATION.538 [id number] Not available 12/01/2022 14:44:59 Maternal Grandmother Family history of malignant neoplasm 8 differ ent kinds MIGRATION.753 [id number] Not available 12/01/2022 14:44:59 Medical History No medical history recorded. Gynecological HistoryNo gynecological history recorded. Obstetrics History GPAL:G 0 P 0 0 0 0 Past Encounters Encounter ID Performer Location Encounter Start Date Encounter Closed Date Diagnosis/Indication Diagnosis SNOMED-CT Code Diagnosis ICD10 Code Diagnosis Note [id number] MD AUDREY Weiss[facility] [address] [place] [address] 09/02/2022 00:00:00 09/02/2022 15:56:13 [id number] Roman Sebastian MD Chavo[facility] [address] [place] [address] 10/13/2022 00:00:00 10/13/2022 15:58:51 [id number] Roman Sebastian MD [facility] [address] [place] [address] 02/16/2023 15:43:45 02/16/2023 16:30:26 Depressive disorder 05349199 F32.A under control Adult heal th examination 392816693 Z00.00 FLU- Has not had in yrsCOVID- Has had 2 vaccines and 1 booster Obesity 874406188 E66.9 watch diet [id number] Roman Sebastian MD [facility] [address] [place] [address] 01/10/2025 09:31:03 01/10/2025 10:36:24 Adult health examination 304774296 Z00.00 Colonoscop y- >7yrs ago NL per [facility] - 12/2024 ([facility])- Not in chartFLU- 4COV ID- Has had 2 vaccines and 1 booster Obesity 889457601 E66.9 watch diet and exercises Sleep cedric mack disturbance 48855914 G47.9 high sleep apnea score, report in the chart Fatigue 53353173 R53.83 Screening for malignant neoplasm of colon 416351861 Z12.11 high risk due to FH [id number] Marysol Chapman NP [facility] [place] [address] [facility] [address] [place] [address] 03/21/2025 13:57:51 03/22/2025 16:07:57 Sleep apnea 53484533 G47.30 G47.33 Home sleep study through [facility] [...] Body mass index 40+ - severely obese 948729599 Z68.41 Encourage healthy diet and exercise to [...] Serrano Member ID Guarantor Name 03/21/2025 1 [facility] [id number] Peri Escobar [id number] Peri Escobar 03/21/2025 1 [facility] Armand Escobar [id number] Peri Escobar 12/01/2022 [employer] [id number] Armand Escobar Notes Date Note Type Note Provider Name and Address Organization Details Recorded Time 02/16/2023 text/html Pt is here today for a routine follow up, doing fine, complaint to medsDepression- mood is under control, sleeps fine when gets time, weight is upmed- Escitalopram 10 mg Roman Sebastian MD [address] [facility], [place], [address], [place] [facility] 02/16/2023 17:13:54 01/10/2025 text/html Pt is here today for a routine follow up, doing finePT IS FASTING ( [facility] ) Requesting an order for a Colonoscopy, Mom was diagnosed with colon cancer at the age of 28. h/o Depression- mood is under control, sleeps fine when gets time, weight is up. No longer taking meds. Insomnia- Has a hard time falling asleep Obesity- snores, feels tired Roman Sebastian MD [address], [place], [address], [facility] [employer] [facility] 01/10/2025 10:25:32 03/21/2025 text/html Obstructive Slee p [...] did a sleep study Marysol Chapman NP [address] [address], [place], [address], [facility] [employer] [facility] 03/21/2025 15:00:03 OBGyn Episode No OBEpisode recorded.
--- NOTE | 2025-05-12 23:21 | P.SLEEP_ITS ---
Sleep Study Date of Study: 04/17/25 Ordering Provider: Ari,Marysol PLAZA Interpreting Physician: Ros Chadwick MD Sleep Study Type: CPAP Titration Height: 1.55 m Weight: 95.254 kg Body Mass Index: 39.6 Neck Circumference (inches): 14 [place]: 5 Reason for Sleep Study Ssnoring, daytime hypersomnia * 01/22/2025; home sleep test showing AHI 13.8 and lowest desaturation 89%; she has insomnia, and presents for a CPAP titration Sleep History This history is taken from her 01/22/2025 home sleep test. Peri Escobar is a 39-year-old female who had a home sleep test January 22, 2025 showing mild obstructive sleep apnea, the apnea hypopnea index was 13.8 with desaturation to 89%. The patient admits to excessive daytime sleepiness, loud snoring, trouble falling asleep and trouble maintaining sleep. The patient does have interruptions in breathing during sleep. She does choke or gasp at night. She denies having trouble breathing on her back. She does have morning headaches. She does have a dry or sore mouth/ throat in the morning. She denies nocturnal heartburn. She does urinate twice throughout the night. She does have difficulty falling and staying asleep. She does have difficulty returning to sleep if she wakes up throughout the night. She denies any hypnotic or sedative use. She denies feeling anxious about sleep. She does feel tired or sleepy during the day. She does feel tired in the morning. She denies having the urge to fall asleep during the day. She denies feeling drowsy while driving. He denies sleep paralysis, cataplexy and hypnagogic/ hypnopompic hallucinations. She does clench or grind her teeth. She denies kicking or jerking her legs excessively. She denies having a restless feeling in her legs. She goes to bed at 10:00 p.m. on work days and at 11:00 p.m. on her days off. It takes her 1 hour to fall asleep. She gets 6 hours of sleep on work days and 7 hours on her days off. Her sleep is a little more restorative on her days off. She denies taking any planned naps. She denies dream behavior. She denies sleep walking. She consumes 1-2 cups of caffeinated beverage per day. She denies tobacco use. She consumes more than 3 alcoholic beverages 1-2 nights per week. She denies exercising regular basis. [facility] Past Medical History Medical History (Updated 05/12/25 @ 23:26 by Ros Chadwick MD) Fatigue Depression Vitamin D deficiency JANESSA (obstructive sleep apnea) Family History Family History (Updated 05/12/25 @ 23:27 by Ros Chadwick MD) Mother Patient's mother is in good health, Onset Age: 49 Carcinoma of colon, Onset Age: 28 Hypertension Grandparent Family history of malignant neoplasm of cervix, Onset Age: 70 Family history of malignant neoplasm of breast, Onset Age: 68 Family history of lymphoma, Onset Age: 65 Diabetes mellitus Social History Social History Smoking status: Never smoker Alcohol intake: current Medications Medications: Vitamin D2 1250 mcg /50,000 units per week Sleep Procedure A full CPAP polysomnogram using the General Sentiment multi-channel system recorded the standard physiologic parameters including EEG, EOG, submentalis EMG, anterior tibialis EMG, EKG, body position, nasal and oral airflow using nasal pressure sensor and thermistor. Respiratory parameters of chest and abdominal movements were recorded with Respiratory Inductance Plethysmography belts. Oxygen saturation was recorded by pulse oximetry. Video monitoring was also performed. Sleep stages, periodic limb movements, and EEG arousals were scored in 30 second epochs according to the criteria of the AASM Scoring Manual. The Apnea-Hypopnea Index was calculated using CMS guidelines for definition of hypopnea while scoring respiratory events. No sleep aid was taken. The patient was started on CPAP using a small ResMed AirTouch full face mask, started at CPAP 5 cm, titrated to maximum pressure of 9 cm At CPAP 9 cm, the patient spent 152 minutes in bed, 6.5 minutes awake, 86 minutes in NREM, 59 minutes in REM, sleep efficiency was 95.4%. The residual apnea hypopnea index was 0.8, and the lowest saturation was 93%. Supine REM occurred at this setting. Sleep Architecture The total recording time was 501.5 minutes. The total sleep time was 473.0 minutes. Sleep latency was 7.4 minutes. REM latency was 124.5 minutes. Sleep efficiency was 94.3%. The patient had 19 awakenings for an awakening index of 2.4. Wake after sleep onset time was 21.0 minutes. The patient spent 11.0 minutes, 2.3% of total sleep time in Stage N1. The patient spent 244.0 minutes, 51.6% in Stage N2. The patient spent 72.0 minutes, 15.2% in Stage N3. The patient spent 146.0 minutes, 30.9% in Stage REM sleep. Respiratory Analysis The patient had no hypopneas, no obstructive apneas, no mixed apneas, and 1 central apnea for an overall Apnea Hypopnea Index of 0.9. The REM Apnea Hypopnea Index was 0. The NREM Apnea Hypopnea Index was 0.9. The patient had a Central Apnea Hypopnea Index of 0.1. There were no Respiratory Effort Related Arousals. The Respiratory Disturbance Index is 0 events per hour. There was no evidence of Rodríguez-Doty Respirations. Arousals There were 146 total arousals for an arousal index of 18.5. There were 9 arousals due respiratory events for an index of 1.1. There were no arousals due to periodic limb movements. There was 1 arousal due to isolated limb movements for an index of 0.1. There were 132 arousals due to spontaneous events for an index of 16.7. . Periodic Limb Movements The patient had 1 isolated limb movement with an index of 0.1. The patient had no periodic limb movements. Patient had a total of 1 limb movement with a total limb movement index of 0.1. Oximetry Data The patient had an average oxygen saturation of 96% in sleep with a minimum oxygen saturation of 92% and a maximum oxygen saturation of 98%. The patient had 20 oxygen desaturations that were 4% or greater resulting in an Oxygen Desaturation Index of 2.5. The patient spent no sleep time with an oxygen saturation below 88%. Snoring Profile Snoring was mild, resolved during the titration. Cardiac Profile The EKG showed normal sinus rhythm, average pulse rate of 75.6 bpm with a minimum pulse of rate of 73 bpm and a maximum pulse rate of 79 bpm. No arrhythmias noted. EEG Profile EEG was unremarkable, no evidence of seizures. Assessment and Plan Assessment and Plan (1) JANESSA (obstructive sleep apnea): Code(s): G47.33 - Obstructive sleep apnea (adult) (pediatric) Status: Acute Assessment and Plan: This full night CPAP titration on 04/17/2025 showed an optimal pressure of CPAP 9 cm using a small ResMed AirTouch full face mask. At CPAP 9 cm, the patient spent 152 minutes in bed, 6.5 minutes awake, 86 minutes in NREM, 59 minutes in REM, sleep efficiency was 95.4%. The residual apnea hypopnea index was 0.8, and the lowest saturation was 93%. Supine REM occurred at this setting. The patient should be prescribed this ResMed equipment as well as tubing, filters and reservoir. This should be used with all episodes of sleep. Compliance should be reviewed within 31-90 days of starting therapy for usage greater than 4 hours per night greater than 70% of the nights. The patient should be asked about symptoms such as excessive daytime sleepiness, quality of sleep, decreased nocturia, increased mental functioning such as memory, mood, and concentration. BMI is 39.7. Weight management is advised. Clinical data suggests that weight loss of 10% can reduce the severity of respiratory events and snoring and improve AHI by as much as 25%. Data The data obtained during this sleep study is adequate for interpretation. Certification This sleep study has been reviewed by a board certified sleep medicine physician.
[2025-05-13 09:28] VITALS: BMI 39.6
== END 2025-04-18 06:51 | disposition home or self-care (01) ==
LOC: ANHCSM 08:27
PROVIDERS: PCP Internal Medicine; Visit Provider Nurse Practitioner
DX: G47.33 Obstructive sleep apnea (adult) (pediatric) (principal)
CPT/HCPCS: 95811

== ENCOUNTER 2025-08-08 00:12 | Day surgery (SDC) | payer OTHER, SELFPAY ==
[2025-07-26 11:01] VITALS: BMI 35.6
[2025-08-08 06:21] VITALS: BMI 34.6
[2025-08-08 06:22] VITALS: BP 133/24; PULSE 87; RESP 18; TEMP 36.3; O2SAT 99
[2025-08-08] MEDS: LACTATED RINGERS 1,000 ML 150 ML IV CONT (06:29)
--- NOTE | 2025-08-08 06:53 | WPDANESEPPF ---
Anes - Initial Pre Proc Eval Procedure: Operation Date: 08/08/25 07:30 Proposed Procedures p Screening Colonoscopy - Candelario Adame MD Date/Time: 08/08/25 06:53 Surgeon: Candelario Adame MD Pre Op Diagnosis: Screening Patient Data Age: 39 Gender: F Height: 1.55 m Weight: 83.1 kg Last Vital Signs Temp 36.3 C L 08/08/25 06:22 Pulse 87 08/08/25 06:22 Resp 18 08/08/25 06:22 BP 133/24 L 08/08/25 06:22 Pulse Ox 99 08/08/25 06:22 O2 Del Method Room Air 08/08/25 06:22 Allergies Allergy/AdvReac Type Severity Reaction Status Date / Time No Known Allergies Allergy Mild Verified 08/08/25 06:19 Home Medications ?Medication ?Instructions ?Recorded ?Confirmed ?Type No Home Medications 07/22/25 07/26/25 History Patient hx anesthesia problems: none Family hx anesthesia problems: none Results Review: All pre-operative results and documents have been reviewed as part of the pre-operative evaluation. [facility] Past Medical History Medical History Arthritis Anxiety Fatigue Depression Vitamin D deficiency JANESSA (obstructive sleep apnea) Surgical History Surgical History History of tubal ligation Hx of cholecystectomy Family History Family History Mother Patient's mother is in good health, Onset Age: 49 Carcinoma of colon, Onset Age: 28 Hypertension Grandparent Family history of malignant neoplasm of cervix, Onset Age: 70 Family history of malignant neoplasm of breast, Onset Age: 68 Family history of lymphoma, Onset Age: 65 Diabetes mellitus Social History Social History Smoking status: Never smoker Alcohol intake: current Substance use: never Substance use type: does not use Do You Feel Safe in your Home?: Yes Lack of Transportation: No Lack of Food: Never True Current Housing: I Have Housing Concerned About Future Housing: No Difficulty Paying Gas/Electric Bills: No Difficulty Paying for Meds: No Currently Unemployed: No Education: High School Diploma/GED Difficulty w/ Childcare or Family Care: No Living arrangements: with family Occupation/Education: occupation Gender identity (if verbalized by the patient): Female Sexual Orientation (if Verbalized by the Patient): Straight or Heterosexual Anes - Eval Final PreProcedure Day of Procedure 08/08/25 06:53 Patient weight: obese Heart: regular rate and rhythm Lungs: clear to auscultation Airway: Mallampati scale class II Neurological: alert and oriented Last oral intake: >/= 8 hours ASA classification: III Emergent: no Anesthetic plan: proceed Anesthesia type and monitoring: general GIVS and standard monitoring Results Review: All pre-operative results and documents have been reviewed as part of the pre-operative evaluation. Informed Consent: The patient's anesthetic plan and its attendant risks and benefits were discussed with the patient/family/POA. Questions were solicited and answers provided to the satisfaction of the patient/family/POA.
--- NOTE | 2025-08-08 07:32 | P.HP_ITS ---
H&P: HPI History of Present Illness Date/Time: 08/08/25 07:32 Chief Complaint: Family history of colon cancer Narrative: This patient has family history of colorectal cancer. Her mother had colorectal cancer at age 28. The patient had her last colonoscopy about 5 years ago. Review of Systems Review of Systems: All systems reviewed & are unremarkable except as noted in HPI and below PMFSH Past Medical History Medical History Arthritis Anxiety Fatigue Depression Vitamin D deficiency JANESSA (obstructive sleep apnea) Surgical History Surgical History History of tubal ligation Hx of cholecystectomy Family History Family History Mother Patient's mother is in good health, Onset Age: 49 Carcinoma of colon, Onset Age: 28 Hypertension Grandparent Family history of malignant neoplasm of cervix, Onset Age: 70 Family history of malignant neoplasm of breast, Onset Age: 68 Family history of lymphoma, Onset Age: 65 Diabetes mellitus Social History Social History Smoking status: Never smoker Alcohol intake: current Substance use: never Substance use type: does not use Do You Feel Safe in your Home?: Yes Lack of Transportation: No Lack of Food: Never True Current Housing: I Have Housing Concerned About Future Housing: No Difficulty Paying Gas/Electric Bills: No Difficulty Paying for Meds: No Currently Unemployed: No Education: High School Diploma/GED Difficulty w/ Childcare or Family Care: No Living arrangements: with family Occupation/Education: occupation Gender identity (if verbalized by the patient): Female Sexual Orientation (if Verbalized by the Patient): Straight or Heterosexual Meds Home Medications and Allergies Home Medications ?Medication ?Instructions ?Recorded ?Confirmed ?Type No Home Medications 07/22/25 07/26/25 H istory Allergies Allergy/AdvReac Type Severity Reaction Status Date / Time No Known Allergies Allergy Mild Verified 08/08/25 06:19 Vital Signs Vital Signs - 24 hr 08/08/25 06:22 Temperature 97.3 F L Pulse Rate 87 Respiratory Rate 18 Blood Pressure 133/24 L Pulse Oximetry 99 Oxygen Delivery Room Air Exam Const: General: cooperative and healthy appearing Resp: Effort & Inspection: normal respiratory effort and able to speak in complete sentences Auscultation: clear to auscultation bilaterally Cardio: Rate: regular rate Rhythm: regular rhythm GI: Inspection: normal to inspection GI Palp: No No hepatosplenomegaly present Auscultation: normal bowel sounds Rectal Exam: deferred Skin: General skin exam: normal color Psych: Appearance: grossly normal Mental Status: mental status grossly normal Assessment and Plan Assessment and plan (1) Family history of colon cancer in mother: Code(s): Z80.0 - Family history of malignant neoplasm of digestive organs Status: Acute Assessment and Plan: The patient is deemed a good candidate for the procedure. Consent signed. Will proceed.
[2025-08-08 07:36] LABS: BEDSIDEPREGUCG Negative (Negative)
--- NOTE | 2025-08-08 07:49 | S_PTH ---
PATIENT: Peri Escobar LOC: [facility] U#:[id number] AGE/SX: 39/F ROOM: RE08/08/[address]: Candelario Adame MD : 1985 BED: DIS: 08/08/2025 SPEC #: [id number] RECD: 08/08/25 10:10 STATUS: CALVIN REReji #: [id number] GUS: 08/08/25 07:[address]: Candelario Adame DEPT: [facility] Surgical RECD BY: Kavitha Hopkins ENTERED: 08/08/25 10:10 SP TYPE: Surgical OTHR DR: Roman SebastianMD Tissues: A - Colon Polypectomy Procedures: Hematoxylin and Eosin Stain Gross and Microscopic Level 4
[2025-08-08 07:51] VITALS: BP 175/105; PULSE 84; RESP 19; O2SAT 100
[2025-08-08 08:01] VITALS: BP 123/74; PULSE 79; RESP 19; O2SAT 100
[2025-08-08 08:11] VITALS: BP 126/72; PULSE 80; RESP 19; O2SAT 100
--- OUTSIDE RECORDS SUMMARY | 2025-08-08 15:56 | XMS_ITS | Clinical Summary ---
Author Organization [facility] Address [address] [place] [address] Care Team Providers Care Pig Caster Name Role Phone Unavailable Primary Care Provider [...] 19+ 3-dose series) 12/12/2002 Pap Smear 12/12/2004 Human Papillomavirus (HPV) Immunization (1 - 3-dose SCDM series) 12/12/2010 Cervical Cancer Screening (CCS) 12/12/2013 HPV/Cotest 12/12/2013 Influenza Immunization (#1) 2025 SARS-COV-2 Immunization ( season) 2025 10/22/2021, 02/15/2021, 01/25/2021 Respiratory Syncytial Virus (RSV) [...]
--- OUTSIDE RECORDS SUMMARY | 2025-08-08 15:56 | XMS_ITS | Clinical Summary ---
Author Organization [facility] [employer] Coding Address [address] [place] [address] Care Team Providers Care Wine Steward Name Role Phone Roman Sebastian MD Primary Care Provider [phone] [facility] On [employer] Coding,non-[facility] Affiliates and Associated Physician Practices is amultiple site organization consisting of ambulatory clinics and hospital sitesin [place], [place], [place] and [place]. This disclosure is being madepursuant to the Care Everywhere program and may not contain all information available regarding this patient. Last updated 18.[facility] [employer] [facility] Family History Medical History Relation Name Comments Cancer - Breast Maternal Grandmother Relation Name Status Comments Maternal Grandmother Social History Tobacco Use Types Packs/Day Years Used Date Smoking Tobacco: Never Assessed Comments No Sex and Gender Information Value Date Recorded Sex Assigned at Not on file Legal Sex Female 10:05 AM COMB SETTER Gender Identity Not on file Sexual Orientation Not on file Last Filed Vital Signs Vital Sign Reading Time Taken Comments Blood Pressure - - Pulse - - Temperature - - Respiratory Rate - - Oxygen Saturation - - Inhaled Oxygen Concentration - - Weight - - Height 154.9 cm (5' 1) 11/28/2024 9:35 AM COMB SETTER Body Mass Index - - Plan of Treatment Health Maintenance Due Date Last Done Comments LIPID TESTING 1985 HIV SCREENING 12/12/1998 HEPATITIS C SCREENING 12/08/2001 DTAP/TDAP/TD VACCINES (1 - Tdap) 12/12/2002 HEPATITIS B VACCINE (1 of 3 - 19+ 3-dose series) 12/12/2002 PAP SMEAR 12/12/2004 HPV VACCINE (1 - 3-dose SCDM series) 12/12/2010 DEPRESSION SCREENING 10/03/2024 COVID-19 VACCINE (2 - 2024-2 6 season) 2025 10/22/2021 INFLUENZA VACCINE (#1) 2025 MAMMOGRAM 11/28/2026 11/28/2024 [...] SCREENING W MILO Routine 11/28/2024 9:33 AM COMB SETTER Visit for screening mammogram from Last 3 Months or Most Recently Relevant to Health Maintenance Results * Mammo Bilat Screening W Milo (11/28/2024 9:33 AM COMB SETTER) Anatomical Region Laterality Modality Breast Bilateral Mammography 11/28/2024 10:0 8 AM COMB SETTER Impressions 11/28/2024 10:54 AM COMB SETTER IMPRESSION: No mammographic evidence of malignancy. RECOMMENDATION: [...] 11/28/2024 10:54 AM Narrative 11/28/2024 10:54 AM COMB SETTER EXAMINATIONS: BILATERAL DIGITAL SCREENING MAMMOGRAM AND BILATERAL BREAST TOMOSYNTHESIS LOCATION: [facility] EXAM DATE: 11/28/2024 HISTORY: Screening. Family history [...] Relevant to Health Maintenance Insurance Care Teams Wine Steward Relationship Specialty Start Date End Date Roman Sebastian MD [address] [place] [address] PCP - General Internal Medicine 11/28/24
--- OUTSIDE RECORDS SUMMARY | 2025-08-08 15:56 | XMS_ITS | Data Portability ---
Author Organization [facility], Main Office Address [address] [place] [address] Care Team Providers Care Mule Spinner Name Role Phone GLENYS HANEY Awning Spreader Assessment Encounter Date Assessment Date Assessment LastModified by Organization Details LastModified Time 03/21/2025 03/21/2025 Time spent with patient included: preparing to see patient by reviewing tests, obtaining and reviewing history, medical examination and evaluation, counseling and educating the patient, ordering medications and tests, documenting clinical information in EHR, interpreting results and communicating results to the patient for a total of 41 minutes.independ ently Not available 03/21/2025 14:58:28 06/12/2025 06/12/2025 Time spent with patient included: preparing to see patient by reviewing tests, obtaining and reviewing history, medical examination and evaluation, counseling and educating the patient, ordering medications and tests, documenting clinical information in EHR, independently interpreting results and communicating results to the patient for a total of 27 minutes. Not available 06/12/2025 15:45:22 Plan of Treatment Reminders Order Date Submit Date Provider Last Modified By Organization Details Last Modified Time Details Appointments Any 30 2024 02:30P Douglas Chapman NP Not available Not available Not available Lab CMP, serum or plasma 2024 025 [email or web address] [facility] (Lab), [address] [place], [address], 01/18/2025 12:45:46 lipid panel, serum [facility] [address] [place], [address], 01/14/2025 18:07:50 vitamin D, 25-hydrox y, total, serum [address] (Lab), [address] [place], [address], 01/18/2025 12:45:46 TSH, serum or plasma [address] (Lab), [address] [place], [address], 01/18/2025 12:45:46 CBC w/ auto diff 2024 025 [facility] (Lab), [address] [place], [address], 01/11/2025 17:39:43 vitamin B12, serum [address] (Lab), [address] [place], [address], 01/18/2025 12:45:47 TSH, serum or plasma 2022 023 [facility] (Lab), [address] [place], [address], 02/21/2023 19:58:22 CMP, serum or plasma 2022 023 [facility] (Lab), [address] [place], [address], 02/21/2023 19:34:47 lipid panel, serum 2022 023 [facility] (Lab), [address] [place], [address], 02/21/2023 19:34:51 Referral None recorded. Procedures colonosco py screening (PROC) - Please call patient to schedule an appointme nt. Thank you. 2024 025 [email or web address] Juan Jose neumann MD, [address], [facility] [address], [place], [address], 04/17/2025 09:08:01 Surgeries None recorded. Imaging polysomno gram, titration study - Please call patient to schedule. 2024 025 [facility] ([facility]), [address] [place], [address], 05/14/2025 16:05:08 home sleep study - Please call patient to schedule. 2024 025 TONI [facility] ([facility]), [address] [place], [address], 02/05/2025 16:54:41 Medication Orders escitalop reta 10 mg tablet 2022 023 [id number], [address] [facility], [place], [place], [id number], 01/10/2025 09:39:19 Patient TargetsNo targets recorded. Patient InstructionsNo instructions recorded. Reason for Referral None Reported. Results Created Date Observation Date Name Description Value Unit Range Abnormal Flag Note LastModifiedBy Organization Detail LastModifiedTime 02/22/20 23 02/21/2023 COMPR EHENS ZEUS METAB OLIC PANEL sodium 140 mmol/ L 137-14 5 Not Available [facility] (Lab) [address] [place], [address], 02/21/2023 19:34:47 02/22/20 23 02/21/2023 COMPR EHENS ZEUS METAB OLIC PANEL potassium 4.2 mmol/ L 3.5-5. 1 Not Available [facility] (Lab) [address] [place], [address], 02/21/2023 19:34:47 02/22/20 23 02/21/2023 COMPR EHENS ZEUS METAB OLIC PANEL chloride 107 mmol/ L 98-107 Not Available [facility] (Lab) [address] [place], [address], 02/21/2023 19:34:47 02/22/20 23 02/21/2023 COMPR EHENS ZEUS METAB OLIC PANEL carbon dioxide 22 mmol/ L 22-30 Not Available [facility] (Lab) [address] [place], [address], 02/21/2023 19:34:47 02/22/20 23 02/21/2023 COMPR EHENS ZEUS METAB OLIC PANEL anion gap 15.2 mmol/ L 14-22 Not Available [facility] (Lab) [address] [place], [address], 02/21/2023 19:34:47 02/22/20 23 02/21/2023 COMPR EHENS ZEUS METAB OLIC PANEL glucose 92 mg/dL 70-99 Not Available [facility] (Lab) [address] [place], [address], 02/21/2023 19:34:47 02/22/20 23 02/21/2023 COMPR EHENS ZEUS METAB OLIC PANEL BUN 13 mg/dL 8-19 Not Available [facility] (Lab) [address] [place], [address], 02/21/2023 19:34:47 02/22/20 23 02/21/2023 COMPR EHENS ZEUS METAB OLIC PANEL creatinine 0.77 mg/dL 0.66-1 .25 Not Available [facility] (Lab) [address] [place], [address], 02/21/2023 19:34:47 02/22/20 23 02/21/2023 COMPR EHENS ZEUS METAB OLIC PANEL GFR >60 Refer ence Range : [place] ge GFR Healt hy Adult : >60 [...] calcu lator is avail able on the [facility] websi te: https :[email or web address] [email or web address] [email or web address] rg/pr ofess ional s/kdo qi/gf r_cal culat or Not Available [facility] (Lab) [address] [place], [address], 02/21/2023 19:34:47 02/22/20 23 02/21/2023 COMPR EHENS ZEUS METAB OLIC PANEL alkaline phosphatase 59 U/L 38-126 Not Available [facility] (Lab) [address] [place], [address], 02/21/2023 19:34:47 02/22/20 23 02/21/2023 COMPR EHENS ZEUS METAB OLIC PANEL alanine aminotransfe rase 19 U/L 0-35 Not Available [facility] (Lab) [address] [place], [address], 02/21/2023 19:34:47 02/22/20 23 02/21/2023 COMPR EHENS ZEUS METAB OLIC PANEL aspartate aminotransfe rase 20 U/L 15-37 Not Available [facility] (Lab) [address] [place], [address], 02/21/2023 19:34:47 02/22/20 23 02/21/2023 COMPR EHENS ZEUS METAB OLIC PANEL bilirubin, total 0.20 mg/dL 0.20-1 .30 Not Available [facility] (Lab) [address] [place], [address], 02/21/2023 19:34:47 02/22/20 23 02/21/2023 COMPR EHENS ZEUS METAB OLIC PANEL calcium 8.8 mg/dL 8.4-10 .2 Not Available [facility] (Lab) [address] [place], [address], 02/21/2023 19:34:47 02/22/20 23 02/21/2023 COMPR EHENS ZEUS METAB OLIC PANEL total protein 6.7 g/dL 6.3-8. 2 Not Available [facility] (Lab) [address] [place], [address], 02/21/2023 19:34:47 02/22/20 23 02/21/2023 COMPR EHENS ZEUS METAB OLIC PANEL albumin 3.8 g/dL 3.4-5. 0 Not Available [facility] (Lab) [address] [place], [address], 02/21/2023 19:34:47 02/22/20 23 02/21/2023 COMPR EHENS ZEUS METAB OLIC PANEL globulin 2.9 g/dL 2.6-4. 2 Not Available [facility] (Lab) [address] [facility] [place], [address], 02/21/2023 19:34:47 02/22/20 23 02/21/2023 COMPR EHENS ZEUS METAB OLIC PANEL A/G ratio 1.3 ratio 1.0-2. 0 Not Available [facility] (Lab) [address] [place], [address], 02/21/2023 19:34:47 02/22/20 23 02/21/2023 LIPID PANEL cholesterol 155 mg/dL 140-19 9 NIH JOSSELIN NSUS RECOM MENDA TION FOR MARY STERO L: ADULT CHILD LOW RISK: <200 <170 BORDE RLINE : <200- 239 ----- HIGH RISK: >240 >200 Not Available [facility] (Lab) [address] [place], [address], 02/21/2023 19:34:51 02/22/20 23 02/21/2023 LIPID PANEL triglyceride s 78 mg/dL 0-150 NIH JOSSELIN NSUS REPOR T RECOM MENDA TION FOR TRIGL YCERI DAMARIS: ADULT CHILD LOW RISK: <150 ----- BODER LINE: 150-1 99 ----- HIGH RISK: >200 ----- Not Available [facility] (Lab) [address] [place], [address], 02/21/2023 19:34:51 02/22/20 23 02/21/2023 LIPID PANEL HDL cholesterol 59 mg/dL 40- Not Available [facility] (Lab) [address] [place], [address], 02/21/2023 19:34:51 02/22/20 23 02/21/2023 LIPID PANEL [...] WILL NOT BE REPOR TALISHA. Not Available [facility] (Lab) [address] [place], [address], 02/21/2023 19:34:51 02/22/20 23 02/21/2023 TSH thyroid-stim ulating hormone 1.290 uIU/m L 0.465- 4.680 Not Available [facility] (Lab) [address] [place], [address], 02/21/2023 19:58:22 02/06/20 25 01/22/2025 home sleep study No observ ation record ed. [email or web address] [facility] [address] [place], [address], 02/11/2025 09:53:21 05/16/20 25 04/17/2025 polys omnog reta, titra tion study No observ ation record ed. [facility] ([facility]) [address] [place], [address], 05/20/2025 10:26:12 05/23/20 25 04/18/2025 polys omnog reta, titra tion study No observ ation record ed. BARCODE Not Available 2024 13:57:05 Result Notes None recorded. Problems Name Problem SNOMED Code Status Onset Date Resolution Date Notes Provider Name and Address Organization Details Recorded Time Pain of shoulder region 23730249 Active Not Available [facility] 3 14:47:44 Neck pain 74170388 Active Not Available [facility] 3 14:47:44 Depressive disorder 03691430 Active 2021 Not Available [facility] 3 14:47:44 Upper respiratory infection 94484278 Active 2021 Not Available [facility] 3 14:47:44 Obesity 315897754 Active 2022 Roman Sebastian MD [address], [place], [address] , [employer] [facility] [employer] 3 16:27:30 Sleep pattern disturbance 71476035 Active 2024 Roman Sebastian MD [address], [place], [address] , [facility] [employer] 5 10:06:07 Fatigue 77665842 Active 2024 Roman Sebastian MD [address] [facility] [address] [facility], [facility] [address], [place], [address] , [facility] 5 10:09:01 Vitamin D deficiency 29828577 Active 2024 Alia Leon MA null, [facility] 5 10:00:55 Obstructive sleep apnea syndrome 75319880 Active 2024 Alia Leon MA null, [facility] 5 14:10:20 Sleep apnea 45055467 Active 2024 Marysol Chapman NP [address] [facility] [facility], [facility] [address], [place], [address] , [facility] 5 14:46:27 Problem Notes None recorded. Procedures Surgical History Date Name Laterality Status Provider Name and Address Organization Details Recorded Time Tubal Ligation completed Not Available [facility] 12/01/2022 14:44:58 cholecystectomy completed Not Available [facility] 12/01/2022 14:44:58 Dilation and curettage completed Not Available [facility] 12/01/2022 14:44:58 Imaging Results None recorded. Procedure [...] active Not Available Not Available Not Available semaglutide (weight loss) active Not Available Not Available Not Available Vitals Date Recorded Body mass index (BMI) Body height Oxygen saturation Oxygen saturation in Arterial blood by Pulse oximetry Heart rate Body temperature Body weight Systolic And Diastolic Provider Name and Address Organization Details Last Updated DateTime 3 38 kg/m2 154.94 cm 98 % 98 % 86 /min 98.1 [degF] 99805.0 7 g 120/80 mm[Hg] Not Available [facility] 3 14:45:15 Date Recorded Body height Body mass index (BMI) Body weight Body temperature Heart rate Oxygen saturation Oxygen saturation in Arterial blood by Pulse oximetry Systolic And Diastolic Provider Name and Address Organization Details Last Updated DateTime 5 154.94 cm 41 kg/m2 17477.5 4 g 97 [degF] 89 /min 98 % 98 % 118/84 mm[Hg] LIGIA Santana PA [employer] [facility] 5 09:37:46 Date Recorded Body height Body mass index (BMI) Body weight Body temperature Heart rate Oxygen saturation Oxygen saturation in Arterial blood by Pulse oximetry Systolic And Diastolic Provider Name and Address Organization Details Last Updated DateTime 3 154.94 cm 38.7 kg/m2 66157.4 4 g 98.2 [degF] 83 /min 98 % 98 % 120/80 mm[Hg] Laura Mehta CMA [employer] [facility] 3 15:51:30 Date Recorded Body height Body mass index (BMI) Body weight Body temperature Heart rate Oxygen saturation Oxygen saturation in Arterial blood by Pulse oximetry Systolic And Diastolic Provider Name and Address Organization Details Last Updated DateTime 5 154.94 cm 41.2 kg/m2 96365.1 4 g 97.9 [degF] 79 /min 98 % 98 % 116/82 mm[Hg] Anahi Parmar MA [employer] [facility] 5 14:32:47 Date Recorded Body height Body mass index (BMI) Body weight Body temperature Heart rate Oxygen saturation Oxygen saturation in Arterial blood by Pulse oximetry Systolic And Diastolic Provider Name and Address Organization Details Last Updated DateTime 5 154.94 cm 37 kg/m2 68399.1 g 98.2 [degF] 79 /min 97 % 97 % 120/78 mm[Hg] HENRY Baxter - AUDRE[employer] 5 15:31:14 Social History Question Answer Notes LastModified by Organization Details LastModified Time Tobacco Smoking Status Former Smoker smoked a bit in her teenage yrs Not Available [facility] 12/01/2022 14:44:31 Do You Have An Advance Directive? No MIGRATION.030 [id number] Information not available 12/01/2022 What Is Your Level Of Caffeine Consumption? Moderate MIGRATION.030 [id number] Information not available 12/01/2022 In The 14 [...] Type Of Diet Are You Following? REGULAR MIGRATION.030 [id number] Information not available 12/01/2022 What Is The Highest Grade Or Level Of School You Have Completed Or The Highest Degree You Have Received? [id number] MIGRATION.030 301837 Information not available 12/01/2022 Do You Have An Electrostatic Air Filter? No Information not available 03/21/2025 Have There Been Any Changes To Your Family Or Social Situation? No MIGRATION.030 056195 Information not available 12/01/2022 Do You Have A Humidifier? No Information not available 03/21/2025 Do You Use Insect Repellent Routinely? No MIGRATION.030 422284 Information not available 12/01/2022 Where Do You Live? SingleLevelHouse MIGRATION.030 541129 Information not available 12/01/2022 Do You Have Moisture Problems In Your Home? No Information not available 03/21/2025 What Was The Date Of Your Most Recent Tobacco Screening? 06/12/2025 Information not available 06/12/2025 Do You Have Any Pets? Yes MIGRATION.0301 [id number] Information not available 12/01/2022 What Is Your Relationship Status? MIGRATION.0301 [id number] Information not available 12/01/2022 Do You Use Your Seat Belt Or Car Seat Routinely? Yes Information not available 03/21/2025 Do You Have Smoke And Carbon Monoxide Detectors In Your Home? Yes MIGRATION.0301 [id number] Information not available 12/01/2022 Are You Passively Exposed To Smoke? No MIGRATION.0301 402651 Information not available 12/01/2022 Are There Any Smokers In Your House? No MIGRATION.0301 662388 Information not available 12/01/2022 Do You Use Sunscreen Routinely? No MIGRATION.0301 389459 Information not available 12/01/2022 Have You Recently Traveled Abroad? No MIGRATION.0301 458403 Information not available 12/01/2022 Do You Have Any Dietary Restrictions? No MIGRATION.0301 898920 Information not available 12/01/2022 Sex: Female Functional Status Question Answer Note LastModified by [employer] Details LastModified Time Do you use any illicit or recreational drugs? No MIGRATION.44936 46574 Information not available 12/01/2022 Do you or have you ever used any other forms of tobacco or nicotine? No Information not available 03/21/2025 What is your level of alcohol consumption? Occasional MIGRATION.56651 20216 Information not available 12/01/2022 Have you been exposed to chemicals or toxins? 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 None MIGRATION.05250 50035 Information not available 12/01/2022 Mental Status Question Answer Note LastModified by [employer] Details LastModified Time Do you feel stressed (tense, restless, nervous, or anxious, or unable to sleep at night)? [id number] MIGRATION.[id number] Information not available 12/01/2022 Family History Relationship Description Onset Age of this Age Resolved Age Notes LastModified by Organization Details LastModified Time Mother Essential hypertension MIGRATION.061 [id number] Not available 12/01/2022 14:44:59 Mother Family history of malignant neoplasm Colon MIGRATION.748 [id number] Not available 12/01/2022 14:44:59 Mother Depressive disorder MIGRATION.553 [id number] Not available 12/01/2022 14:44:59 Maternal Grandfather Diabetes mellitus MIGRATION.278 [id number] Not available 12/01/2022 14:44:59 Maternal Grandmother Family history of malignant neoplasm 8 differ ent kinds MIGRATION.197 [id number] Not available 12/01/2022 14:44:59 Medical History No medical history recorded. Gynecological HistoryNo gynecological history recorded. Obstetrics History GPAL:G 0 P 0 0 0 0 Past Encounters Encounter ID Performer Location Encounter Start Date Encounter Closed Date Diagnosis/Indication Diagnosis SNOMED-CT Code Diagnosis ICD10 Code Diagnosis IMO Codes Diagnosis Note [id number] Roman Sebastian MD [facility] Internal [address] [place] [address] 09/02/2022 00:00:00 09/02/2022 15:56:13 [id number] Roman Sebastian MD [facility] Internal [address] [place] [address] 10/13/2022 00:00:00 10/13/2022 15:58:51 [id number] Roman Sebastian MD [facility] Internal [address] [place] [address] 02/16/2023 15:43:45 02/16/2023 16:30:26 Depressive disorder 61945761 F32.A under control Adult [facility] th examination 455554964 Z00.00 FLU- Has not had in yrsCOVID- Has had 2 vaccines and 1 booster Obesity 696377667 E66.9 watch diet [id number] Roman Sebastian MD [facility] Internal [facility] [address] [facility] [place] [address] 01/10/2025 09:31:03 01/10/2025 10:36:24 Adult health examination 388979933 Z00.00 Colonoscop y- >7yrs ago NL per ptMammogra m- 12/2024 (SLU)- Not in chartFLU- 4COV ID- Has had 2 vaccines and 1 booster Obesity 599445615 E66.9 watch diet and exercises Sleep cedric mack disturbance 64911427 G47.9 high sleep apnea score, report in the chart Fatigue 74483142 R53.83 Screening for malignant neoplasm of colon 650104715 Z12.11 high risk due to FH [id number] Marysol Chapman NP [facility] [address] 03/21/2025 13:57:51 03/22/2025 16:07:57 Sleep apnea 18391639 G47.30 G47.33 61076036 Home sleep study through [facility] HI 13.8 with desat to 89%titrati on [...] Body mass index 40+ - severely obese 322944636 Z68.41 769003 Encourage healthy diet and exercise to improve weightdisc ussed weight effect on sleep and sleep apnea [id number] David Dean MD [facility] [address] [place] [address] 06/12/2025 15:09:30 06/14/2025 15:10:38 Obstructive sleep apnea syndrome 20313420 G47.33 100343 459900 Home sleep study through [facility] HI 13.8 with desat to 89%titrati on sleep study-CPAP order for 9 cm H2O with Resmed Airtouch full maskESS-5D iscussed sleep hygeineAdv ised good sleep habits and [...] iscussed reportable signs and symptoms of concernf/u in 6-8 weeks Body mass index 30+ - obesity 646830381 Z68.37 82823829 Encourage healthy diet and exercise to improve weightdisc ussed weight effect on sleep and sleep apnea Health Concerns Section Related Observation LastModified by Organization Detai ls LastModified Time None Recorded Concern Status LastModified by Organization Details LastModified Time None Recorded Advance Directives Directive N: Payers Insurance Date Sequence Insurance Name Policy Number Policy Serarno Covered Member ID Serrano Member ID Guarantor Name 03/21/2025 1 [employer] [id number] Peri Escobar [id number] Peri Escobar 07/15/2025 1 [employer] Armand Escobar [id number] Peri Escobar 12/01/2022 [employer] [id number] Armand Escobar Notes Date Note Type Note Provider Name and Address Organization Details Recorded Time 02/16/2023 text/html Pt is here today for a routine follow up, doing fine, complaint to medsDepression- mood is under control, sleeps fine when gets time, weight is upmed- Escitalopram 10 mg Roman Sebastian MD [address], [facility] [address], [place], [address], [place] [facility] 02/16/2023 17:13:54 01/10/2025 text/html Pt is here today for a routine follow up, doing finePT IS FASTING ( [facility] ) Requesting an order for a Colonoscopy, Mom was diagnosed with colon cancer at the age of 28. h/o Depression- mood is under control, sleeps fine when gets time, weight is up. No longer taking meds. Insomnia- Has a hard time falling asleep Obesity- snores, feels tired Roman Sebastian MD [address] [address], [place], [address], [facility] [employer] 01/10/2025 10:25:32 03/21/2025 text/html Obstructive Slee p ApneaReported by PatientHPIFor associated symptoms, patient reportsmorning dry mouth,morning headache,postnasal drip,daytime sleepiness,suddenly falling asleep during the day,impaired work performance,witnesse d apnea,poor concentration, andamnesiabut reportsno dysphagia,no awakening short of breath,no night sweats,no napping,no nasal congestion,no snoring,no gasping for air,no hyponasal speech,no mouth breathing,no hyperactivity, andno irritability(loud snoring). For timing, patient reportsgradualanddai ly. For duration, patient reportsfrequent.prim laura did a sleep study Marysol Chapman NP [address] [employer] [address] [address], [place], [address], [employer] 03/21/2025 15:00:03 06/12/2025 text/html Obstructive Slee p ApneaReported by PatientHPIFor associated symptoms, patient reportsmorning dry mouth,morning headache,postnasal drip,daytime sleepiness,suddenly falling asleep during the day,impaired work performance,witnesse d apnea,poor concentration, andamnesiabut reportsno dysphagia,no awakening short of breath,no night sweats,no napping,no nasal congestion,no snoring,no gasping for air,no hyponasal speech,no mouth breathing,no hyperactivity, andno irritability(loud snoring). For timing, patient reportsgradualanddai ly. For duration, patient reportsfrequent.foll ow-up on titration study Marysol Chapman NP [address], [place], [address], [place] [facility] 06/12/2025 15:48:08 OBGyn Episode No OBEpisode recorded.
== END 2025-08-08 08:15 | disposition home or self-care (01) ==
PROVIDERS: PCP Internal Medicine; Referring Provider Internal Medicine; Visit Provider Internal Medicine Gastroenterology
PROC: 0DJD8ZZ Inspection of Lower Intestinal Tract, Via Natural or Artificial Opening Endoscopic (ICD-10-PCS; CPT 45378; principal; 2025-08-08 07:30)
DX: Z12.11 Encounter for screening for malignant neoplasm of colon (principal); D12.5 Benign neoplasm of sigmoid colon; D64.9 Anemia, unspecified; G47.33 Obstructive sleep apnea (adult) (pediatric); F41.9 Anxiety disorder, unspecified; F32.A Depression, unspecified; R53.83 Other fatigue; M19.90 Unspecified osteoarthritis, unspecified site; E66.9 Obesity, unspecified; Z68.34 Body mass index [BMI] 34.0-34.9, adult; Z90.49 Acquired absence of other specified parts of digestive tract; Z98.51 Tubal ligation status; Z80.3 Family history of malignant neoplasm of breast; Z80.0 Family history of malignant neoplasm of digestive organs; Z80.49 Family history of malignant neoplasm of other genital organs; Z80.7 Family history of other malignant neoplasms of lymphoid, hematopoietic and related tissues
CPT/HCPCS: 45385; 88305; J2704; J7120